=== PATIENT | female | born 1960 | race Caucasian/White ===

== ENCOUNTER 2025-06-14 08:07 | Inpatient (IN) | payer OTHER, SELFPAY ==
[2025-06-14] VITALS (13 sets, daily range): BP systolic 129–154; BP diastolic 72–96; PULSE 65–81; RESP 12–20; TEMP 36.2–36.8; O2SAT 97–100; BMI 31.1; BMI 32.1
--- NOTE | 2025-06-14 08:30 | EDS_ITS ---
HPI History of Present Illness Chief Complaint: Abn Labs Informant: patient Onset/Context/Timing Onset: Weeks Context: Gradual Onset Timing: Continuous Current Severity: Mild Maximum Severity: Mild Narrative Narrative: 64-year-old female no significant past medical history. States that she had labs drawn about 1-1/2 weeks ago around June 02 was called said her hemoglobin was 6.2 and was referred to the ER. Said people been telling her she has been pale. Says she just felt generally weak. She denies any melena. No history of anemia or kidney disease. No prior transfusion. She denies any black or bloody stool. Prior similar symptoms: No Recent Illness/Hospitalization: No PFSH PFSH Medical History no medical history no medical history Home Medications ?Medication ?Instructions ?Recorded ?Last Taken ?Type cephalexin 500 mg capsule (Keflex) 500 mg PO 4X/DAY ## 20 05/22/17 Unknown Rx sulfamethoxazole 800 1 tab PO BID ##10 05/22/17 U nknown Rx mg-trimethoprim 160 mg tablet Allergy/AdvReac Type Severity Reaction Status Date / Time No Known Allergies Allergy Verified 05/22/17 10:09 Social History Smoking Status: Never smoker ROS ROS ED ROS Narrative Generalized weakness. Constitutional Constitutional ED: Denies chills or fever(s) Eyes Eyes: Denies blurry vision ENT ENT ED: Denies ear pain Cardiovascular Cardiovascular: Denies chest pain Respiratory/Chest Respiratory/Chest: Denies cough Gastrointestinal Gastrointestinal: Denies abdominal pain Genitourinary Genitourinary ED: Denies dysuria or hematuria Musculoskeletal Musculoskeletal: Denies arthralgias Integumentary Denies abscess Neurologic Neurologic: Denies headache(s) Psychiatric Psychiatric: Denies anxiety Endocrine Endocrinology: Denies cold intolerance Hematologic/Lymphatic Hematologic/Lymphatic: Reports none Allergic/Immunologic Allergic/Immunologic ED: Denies mouth swelling, tongue swelling or urticaria EXAM Physical Exam Narrative Exam Narrative: Well-appearing 64-year-old female. Vital signs are stable afebrile. Pulse ox 100% on room air no hypoxia. She is in no distress. She is accompanied by her verbally. H EENT exam pupils are round reactive light. Moist mutes members. Neck nontender no JVD. No lymphadenopathy. Lungs clear to auscultation bilaterally. Heart regular rhythm no murmur. Chest wall and ribs are nontender. Abdomen soft nontender. Patient is moving all 4 extremities. Nontender no edema. Skin she appears pale. Neurologically she is awake alert. Answer questions following commands. Back nontender. Const Vital Signs: 06/14/25 08:08 06/14/25 08:36 Temperature 97.2 F L Temperature Source Temporal Pulse Rate 77 Respiratory Rate 16 Respiratory Effort Normal Non-Labored Respiratory Pattern Normal Blood Pressure 154/81 H Blood Pressure Mean 105 Pulse Ox 100 Oxygen Delivery Method Room Air Positive well nourished and well developed; Negative for cachectic, contractures or unkempt General Appearance ED: well developed, NAD and pallor; Negative for unkempt, cachectic, contractures, cyanotic or diaphoretic Nutritional Appearance: Negative for cachectic HEENT Reports moist mucous membranes Eyes PERRL and EOMs intact bilaterally Neck no lymphadenopathy, supple and no JVD Chest Wall inspection of chest normal and palpation of chest normal Resp normal respiratory effort and clear to auscultation bilaterally Cardio regular rate, regular rhythm, S1 normal heart sound, S2 normal heart sound and no murmurs GI normal to inspection, nondistended, normoactive bowel sounds, non-tender, non- distended and no masses Auscultation: normoactive bowel sounds Palpation: soft; Negative for tender, guarding, mass or rebound tenderness present Back/Spine no CVA tenderness General Back: Negative for CVA tenderness Cervical Spine: Negative for cervical spine tenderness Thoracic Spine / Upper Back: Negative for thoracic spinal tenderness or paraspi nal muscle tenderness Lumbar Spine / Lower Back: Negative for lumbar spinal tenderness Extremity normal to inspection General Extremety ED: Negative for edema or tenderness General Extremity: Negative for edema Neuro oriented x3 and CN's II-XII intact bilaterally Sensorium / Orientation: alert Motor Exam: strength 5/5 throughout Psych mental status grossly normal Appearance: Negative for unkempt Skin no rashes or lesions noted, no wounds and skin turgor normal General Skin Exam: elasticity normal and pallor; Negative for jaundice Lesions: No lesion noted Rashes: No rashes noted Trauma: Negative for abrasion Wounds: Negative for wounds noted MDM MDM MDM Narrative Medical decision making narrative: 64-year-old female outpatient labs showed hemoglobin 6.2 she was sent to the emergency department for further evaluation and possible transfusion. Repeat exam 9:29 AM unchanged. Patient doing well. We discussed her test results. She is being typed and crossed currently for 2 units I called the blood bank they will start transfusing them when ready. I have the hospitalist on page for admission. For further evaluation of her anemia. Patient has not noticed any black or bloody stools. History & Record Review Discussion w/independent historian: Patient and Family Additional record(s) reviewed:: Prior inpatient record, Prior outpatient record, Prior ED visit and Prior labs Lab Data Attestation: I reviewed the patient's lab results. Lab results narrative: CBC shows a white count of 5. H&H is 6.6 and 24.8. Platelets 282. Electrolytes show a gap of 12. Normal BUN of 14 creatinine 0.79. Glucose 96. Blood type a positive. Labs: Laboratory Results - last 24 hr 06/14/25 08:20 WBC 5.0 RBC 3.48 L Hgb 6.6 L Hct 24.8 L MCV 71.3 L MCH 19.0 L MCHC 26.6 L RDW Std Deviation 49.1 H RDW Coeff of Evelia 19.1 H Plt Count 282 MPV 10.3 Immature Gran % (Auto) 0.200 Neut % (Auto) 54.9 Lymph % (Auto) 28.3 Cobb % (Auto) 11.4 H Eos % (Auto) 3.6 Baso % (Auto) 1.6 H Absolute Neuts (auto) 2.7 Absolute Lymphs (auto) 1.41 Nucleated RBC % 0 Sodium 144 Potassium 4.1 Chloride 109 H Carbon Dioxide 22.9 Anion Gap 12 BUN 14 Creatinine 0.79 Estim Creat Clear Calc 75.48 Est GFR (MDRD) Non-Af 83 BUN/Creatinine Ratio 17.4 Glucose 96 Calcium 9.2 Blood Type A POSITIVE Antibody Screen NEGATIVE Crossmatch See Detail Discharge Plan Triage Chief Complaint: Abn Labs ED Provider: Lenny Herrera Dx/Rx/DC Orders Clinical Impression: Anemia requiring transfusions Prescriptions: No Action sulfamethoxazole-trimethoprim 1 TABLET tablet 1 tab PO BID Qty: 10 0RF cephalexin [Keflex] 500 MG capsule 500 mg PO 4X/DAY Qty: 20 0RF Primary Care Provider: Nolvia Bowman NP Referrals: Ata Martinez DO [Non-Staff] - Print Language: Romanian Disposition Disposition: Acute Care Hospital [facility]
[2025-06-14 08:45] LABS: Hematocrit 24.8 % (37-47); Hemoglobin 6.6 g/dL (12.0-15.0); Immature Granulocytes Count 0.010 X10^3/uL (0.0-0.0); Mean Corp Hgb Conc 26.6 g/dL (32-36); Mean Corpuscular Volume 71.3 fL (81-99); Mean Platelet Vol. 10.3 fl (6.2-12.0); NRBC Flagged by Analyzer 0 % (0-5); Platelet Count 282 K/mm3 (150-450); RBC Distribution Width CV 19.1 % (11.6-14.6); RBC Distribution Width SD 49.1 fl (35.1-43.9); Red Blood Count 3.48 M/mm3 (4.2-5.4); White Blood Count 5.0 K/mm3 (4.4-11.0)
[2025-06-14 09:08] LABS: Anion Gap 12 (5-15); BUN 14 mg/dL (4-19); BUN/Creat Ratio 17.4 RATIO (10-20); Calcium,Total 9.2 mg/dL (7.6-11.0); Carbon Dioxide 22.9 mmol/L (21.0-32.0); Chloride 109 mmol/L (98-108); Estimated Creatinine Clearance 75.48 ml/min (50-250); Glucose 96 mg/dL (70-99); Potassium 4.1 mmol/L (3.3-5.1)
--- NOTE | 2025-06-14 10:05 | PCM.HP.STD ---
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 In ED, H&H found 6.6 24.8%. Microcytic, platelet count 282K. She denies any associated symptom of chest pain pressure tightness, dizziness lightheadedness although she feels dyspnea on exertion when climbing 1 flight of stairs. Denies GI bleed including hematemesis melena or hematochezia. Did not had colonoscopy or EGD in the past. Denies first-degree family history of colon patient cancer. No nausea or vomiting. Patient not on any blood thinner or antiplatelet agent Or NSAID 2 L of PRBC type and crossmatch ordered by ER physician and further admitted [facility] Medical History no medical history Home Medications ?Medication ?Instructions ?Recorded ?Last Taken ?Type NK 06/14/25 Unknown History Allergy/AdvReac Type Severity Reaction Status Date / Time No Known Allergies Allergy Verified 05/22/17 10:09 Social History Smoking Status: Never smoker ROS ROS Narrative Constitutional: Denies chronic fatigue and weakness. No fever. HEENT: Reports systems reviewed and no addt'l complaints, except as documented Respiratory/Chest: Recent dyspnea on exertion when climbing stairs. No acute shortness of breath or respiratory distress or wheezing. No smoking. No chronic lung disease CVS: No chest pain. Denies any chronic cardiac disease Gastrointestinal: Denies coffee ground emesis, hematemesis or vomiting Genitourinary: Denies burning urination or new urinary tract symptoms Musculoskeletal: Denies acute joint pain or limited range of motion. No acute injury Neurologic: Denies seizure-like symptoms. skin: No ulcer. No rash Endocrinology: Reports systems reviewed and no addt'l complaints, except as documented Hematologic/Lymphatic: Reports systems reviewed and no addt'l complaints, except as documented Rest 14 ROS are negative except as mentioned in HPI Vital Signs Vital Signs Vital Signs: 06/14/25 08:08 06/14/25 08:36 Temperature 97.2 F L Temperature Source Temporal Pulse Rate 77 Respiratory Rate 16 Respiratory Effort Normal Non-Labored Respiratory Pattern Normal Blood Pressure 154/81 H Blood Pressure Mean 105 Pulse Ox 100 Oxygen Delivery Method Room Air Weight Weight: 187 lb 6.4 oz Body Mass Index (BMI) 31.1 Physical Exam Narrative General: Alert, Oriented x3, Cooperative, . Pale looking HEENT: Atraumatic, PERRLA, EOMI, Normocephalic. Oral: No Gingival or Mucosal Lesions/ Ulcerations Neck: Supple, No JVD, Negative Carotid Bruits Chest wall/Lungs: Air entry diminished in bilateral lung bases. No crepitation/rhonchi Cardiovascular: Regular rate and rhythm, Normal S1,S2, No M/G/R Abdomen: Bowel Sounds Present, Soft, Non Tender, Non-Distended : No dysuria. No renal angle tenderness. No suprapubic tenderness. Extremities: No edema, Capillary Refill Less than 3 Seconds Skin: No rashes, No breakdown Musculoskeletal: No Tenderness to Palpation of Joints or Extremities Neurological: Cranial nerves II-XII grossly intact, DTR 2+/4. No acute focal neurological deficit. Psych/Mental Status: Normal Affect, Appropriate. Results Lab / Micro Data 06/14/25 08:20 06/14/25 08:20 Labs: Laboratory Results - last 24 hr 06/14/25 08:20: WBC 5.0, RBC 3.48 L, Hgb 6.6 L, Hct 24.8 L, MCV 71.3 L, MCH 19.0 L, MCHC 26.6 L, RDW Std Deviation 49.1 H, RDW Coeff of Evelia 19.1 H, Plt Count 282, MPV 10.3, Immature Gran % (Auto) 0.200, Neut % (Auto) 54.9, Lymph % (Auto) 28.3, [place] % (Auto) 11.4 H, Eos % (Auto) 3.6, Baso % (Auto) 1.6 H, Absolute Neuts (auto) 2.7, Absolute Lymphs (auto) 1.41, Nucleated RBC % 0, Sodium 144, Potassium 4.1, Chloride 109 H, Carbon Dioxide 22.9, Anion Gap 12, BUN 14, Creatinine 0.79, Estim Creat Clear Calc 75.48, Est GFR (MDRD) Non-Af 83, BUN/Creatinine Ratio 17.4, Glucose 96, Calcium 9.2, Blood Type A POSITIVE, Antibody Screen NEGATIVE, Crossmatch See Detail Assessment & Plan Assessment/Plan (1) Anemia requiring transfusions: PLAN: Plan 64-year-old female being admitted for severe anemia from outside lab by PCP 1. Acute rapidly acute on chronic severe microcytic anemia: No previous lab to compare. Patient is being admitted in PCU. H&H 6.6/24.8%. Platelet count normal. Units of PRBC-type and crossmatch and transfusion. Posttransfusion H&H. Stool for occult blood ordered. GI consulted for severe microcytic anemia to rule out colon cancer. PPI ordered. 2. Severe anemia: Exact etiology unclear. Anemia workup including reticulocyte panel, iron profile, B12 and folic acid ordered. MCV low, MCH low RDW elevated therefore most likely iron deficiency anemia. 3. The patient denies any other chronic comorbidities including hypertension and diabetes mellitus or other comorbidities. Patient not on any home medication. DVT prophylaxis, moderate risk: Pharmacological prophylaxis contraindicated. Bilateral SCDs Living will/advanced directive/end of life care: Patient does not have living will or advanced directive. After discussion of benefits/risks procedures involved with full code, DNR CC arrest and DNR CC, the patient states he has not decided yet but opted for full code for now. Patient does want artificial life support including intubation, tube feed, ventilator and/chest compression, central venous catheter, vasopressor and DC shock if needed Total time spent in [id number] encounter in discussion of advanced directive 17 minutes. She states her is power of assistant prosecuting attorney for health. Laboratory Results 06/14/25 08:20: WBC 5.0, RBC 3.48 L, Hgb 6.6 L, Hct 24.8 L, MCV 71.3 L, MCH 19.0 L, MCHC 26.6 L, RDW Std Deviation 49.1 H, RDW Coeff of Evelia 19.1 H, Plt Count 282, MPV 10.3, Immature Gran % (Auto) 0.200, Neut % (Auto) 54.9, Lymph % (Auto) 28.3, [place] % (Auto) 11.4 H, Eos % (Auto) 3.6, Baso % (Auto) 1.6 H, Absolute Neuts (auto) 2.7, Absolute Lymphs (auto) 1.41, Nucleated RBC % 0, Sodium 144, Potassium 4.1, Chloride 109 H, Carbon Dioxide 22.9, Anion Gap 12, BUN 14, Creatinine 0.79, Estim Creat Clear Calc 75.48, Est GFR (MDRD) Non-Af 83, BUN/Creatinine Ratio 17.4, Glucose 96, Calcium 9.2, Magnesium 2.1, Blood Type A POSITIVE, Antibody Screen NEGATIVE, Crossmatch See Detail 06/14/25 11:55: PT 12.7, INR 0.9 Charges/Coding Visit Charges Inpatient E&M: 52325 Init Hosp L3 Procedures Hospitalists Procedures: 28282 Advncd Care Plan 30 Min
[2025-06-14 11:33] LABS: Magnesium 2.1 mg/dL (1.5-2.2)
[2025-06-14 12:43] LABS: Prothrombin Time (Protime)PT. 12.7 SECONDS (11.7-14.9)
[2025-06-14 14:35] LABS: Immature Reticulocyte Fraction 23.50 % (3.00-15.90); Platelet Count 287 K/mm3 (150-450); Reticulocyte Count 1.94 % (0.5-1.5)
[2025-06-14 15:23] LABS: Ferritin 6 ng/mL (22-378); Iron 14 ug/dL (50-170); Iron Binding Capacity,Unsat 449 ug/dL (228-428); Vitamin B12 172 pg/mL (180-914)
[2025-06-14 15:24] LABS: FOLATES,SERUM (FOLIC ACID) 15.40 ng/mL (4.60-34.80)
[2025-06-14 16:33] LABS: Iron Binding Capacity,Total 463 ug/dL (250-450)
[2025-06-14 18:25] LABS: Hematocrit 35.9 % (37-47); Hemoglobin 10.1 g/dL (12.0-15.0)
--- NOTE | 2025-06-14 18:42 | DS.PCM_ITS ---
Providers Date of Admission: 06/14/25 Date of Discharge: 06/14/25 Primary Care Physician: Nolvia Bowman, FERNANDO-C Consultations 06/14/25 11:31 Consult: Gastroenterology Routine Consulting Provider: [facility] Reason for Consult: SEVERE TANVIR EMERGENT Consult: No MD Notified: Yes Date Notified: 06/14/25 Time Notified: 10:05 Method of Notification: Text Reason For Visit: ANEMA/BLOOD TRANSFUSION Diagnosis Discharge Diagnosis (1) Anemia requiring transfusions: Status: Acute Code(s): D64.9 - Anemia, unspecified Plan 64-year-old female being admitted for severe anemia from outside lab by PCP 1. Acute rapidly acute on chronic severe microcytic anemia: No previous lab to compare. Patient is being admitted in PCU. H&H 6.6/24.8%. Platelet count normal. Units of PRBC-type and crossmatch and transfusion. Posttransfusion H&H. Stool for occult blood ordered. GI consulted for severe microcytic anemia to rule out colon cancer. PPI ordered. Up to 3 minutes of PRBC transfusion, hemoglobin went up to 10.1. Patient was advised she will need colonoscopy. She did not agree with colonoscopy or suggestions. She signed AMA/left AGAINST MEDICAL ADVICE. 2. Severe anemia: Exact etiology unclear. Anemia workup including reticulocyte panel, iron profile, B12 and folic acid ordered. MCV low, MCH low RDW elevated therefore most likely iron deficiency anemia. 3. The patient denies any other chronic comorbidities including hypertension and diabetes mellitus or other comorbidities. Patient not on any home medication. DVT prophylaxis, moderate risk: Pharmacological prophylaxis contraindicated. Bilateral SCDs Living will/advanced directive/end of life care: Patient does not have living will or advanced directive. After discussion of benefits/risks procedures involved with full code, DNR CC arrest and DNR CC, the patient states he has not decided yet but opted for full code for now. Patient does want artificial life support including intubation, tube feed, ventilator and/chest compression, central venous catheter, vasopressor and DC shock if needed Total time spent in [id number] encounter in discussion of advanced directive 17 minutes. She states her is power of privacy attorney for health. Laboratory Results 06/14/25 08:20: WBC 5.0, RBC 3.48 L, Hgb 6.6 L, Hct 24.8 L, MCV 71.3 L, MCH 19.0 L, MCHC 26.6 L, RDW Std Deviation 49.1 H, RDW Coeff of Evelia 19.1 H, Plt Count 282, MPV 10.3, Immature Gran % (Auto) 0.200, Neut % (Auto) 54.9, Lymph % (Auto) 28.3, Guthrie % (Auto) 11.4 H, Eos % (Auto) 3.6, Baso % (Auto) 1.6 H, Absolute Neuts (auto) 2.7, Absolute Lymphs (auto) 1.41, Nucleated RBC % 0, Sodium 144, Potassium 4.1, Chloride 109 H, Carbon Dioxide 22.9, Anion Gap 12, BUN 14, Creatinine 0.79, Estim Creat Clear Calc 75.48, Est GFR (MDRD) Non-Af 83, BUN/Creatinine Ratio 17.4, Glucose 96, Calcium 9.2, Magnesium 2.1, Blood Type A POSITIVE, Antibody Screen NEGATIVE, Crossmatch See Detail 06/14/25 11:55: PT 12.7, INR 0.9 Medications at Discharge Home Medications NK 06/14/25 Hospital Course Summary of Care Provided Hospital Course: Laboratory Results 06/14/25 08:20: Crossmatch See Detail 06/14/25 18:18: Hgb 10.1 L, Hct 35.9 L Physical Exam Narrative Patient left AMA on the same day of admission. Please see physical exam on the H&P. Weight / BMI Weight Weight: 188 lb 8 oz Body Mass Index (BMI) 32.1 ABG / Lab / Microbiology Data 06/14/25 18:18 06/14/25 08:20 Laboratory: Laboratory Results - last 24 hr 06/14/25 08:20: Crossmatch See Detail 06/14/25 18:18: Hgb 10.1 L, Hct 35.9 L D/C Instructions DC O2, CPAP, BIPAP Needs Home O2 Discharge instructions: No Meaningful Use Info Meaningful Use Meaningful Use Diagnoses (Choose all that apply): None applicable Discharge Plan Admission Admit Date/Time: 06/14/25 10:00 Attending Provider: Dante Hannah Primary Care Provider: Nolvia Bowman NP Consulting Providers: Dante Hannah; Saturnino Back; Lynn Velasquez; Adriane Dial; Magaly Bundy Discharge Orders/Prescriptions Prescriptions: No Action NK Referrals / Follow Up: Ata Martinez, [Non-Staff] - Nolvia Bowman SERVICE ELECTRICIAN, SERVICE ELECTRICIAN-C [Primary Care Provider] - Disposition Disposition (needs filled in before D/C Order can be placed): Home, Self Care Charges/Coding Visit Charges Inpatient E&M: 98238 Disch Hosp
== END 2025-06-14 18:34 | disposition left against medical advice (07) | DRG 812 ==
LOC: ED 09:39 → PCU 10:35
PROVIDERS: Admitting Provider Internal Medicine; Emergency Provider Emergency Medicine; PCP Nurse Practitioner Family; Visit Provider Internal Medicine
DX: D50.9 Iron deficiency anemia, unspecified (principal); Z53.29 Procedure and treatment not carried out because of patient's decision for other reasons
CPT/HCPCS: 80048; 82607; 82728; 82746; 83540; 83550; 83735; 85014; 85018; 85025; 85045; 85610; 86850; 86900; 86901; 86920; 99284; P9016; A4216

== ENCOUNTER 2025-08-01 07:55 | Day surgery (SDC) | payer SELFPAY, OTHER ==
[2025-08-01] VITALS (8 sets, daily range): BP systolic 100–136; BP diastolic 55–86; PULSE 64–82; RESP 16–18; TEMP 36.1–36.4; O2SAT 97–100; BMI 31.8
[2025-08-01] MEDS: Lactated Ringers 1,000 ML 15 ML IV (08:31)
--- NOTE | 2025-08-01 08:55 | PCM.HP.BLA ---
History and Physical Date of Admission: 08/01/25 Intake Vital Signs 06/14/2511:49 07/10/2508:34 Height 5 ft 4 in 5 ft 4 in Weight: 187 lb 6 oz BMI 32.1 BP 145/97 H Blood Pressure Location Lt radial Position Sitting Respiration 17 Pulse 66 Pulse Source Monitor Temp 97.2 F L Temp Source Temporal Pulse Oximetry (%) 98 Oxygen Delivery Method room air Intake Visit Reasons: Anemia Chief Complaint: anemia Is patient in pain?: No Allergies No Known Allergies Allergy (Verified 07/10/25 08:36) Medications Medication Instructions Recorded Confirmed Type ferrous sulfate 325 mg (65 mg 325 mg PO QDAY 07/10/25 07/10/25 History iron) tablet Have you fallen in the past year?: No PFSH Medical History (Updated 07/10/25 @ 08:34 by Lien Reich LPN) Iron deficiency anemia Anemia requiring transfusions Social History (Updated 07/10/25 @ 08:34 by Lien Reich LPN) Smoking Status: Never smoker alcohol intake: never substance use type: does not use HPI HPI HPI: Patient is a 64-year-old female here with anemia. Patient does not note any gross blood per stool. She denies abdominal pain. She saw her doctor in early June and was found to have a hemoglobin of 6 and had 2 units of blood. She feels much better now. She has never had a colonoscopy or EGD. ROS General General: Yes fatigue; No weight change, appetite, colon cancer, breast cancer or weakness HEENT HEENT: No difficulty swallowing, eye injury, eye surgery, swollen glands or hoarseness Endo Endocrine: No thyroid disease, diabetes mellitus, thyroid cancer, Hair loss, heat intolerance or cold intolerance Skin Skin: No rash or changing moles Musc Musculoskeletal: No back problems, arthritis, rheumatoid arthritis, gout or joint pain Cardio Cardiovascular: No murmur, pacemaker, heart disease, atrial fibrillation, high blood pressure, heart attack, heart stent, palpitations, shortness of breath with exertion or chest pain Psych Psychiatric: No depression, anxiety or hearing voices Resp Respiratory: Yes shortness of breath, No sleep apnea, No cough, No COPD, No asthma, No emphysema and No wheezing Gastro Gastrointestinal: No abdominal pain, No nausea or vomiting, No diarrhea, No constipation, No blood in stool, No acid reflux, No hemorrhoids, No ulcers, No gallbladder problem and No black,tarry stools Ti Hematologic: No blood thinners, No blood disorders, No bleeding, No anemia and No blood clots Neuro Neurologic: No numbness, No tingling and No weakness Exam Const General: cooperative Orientation: alert and oriented x3 HENMT Head: normal to inspection Neck Neck: normal visual inspection and full ROM Chest Chest palpation & inspection: normal inspection of the chest Resp Effort & Inspection: normal respiratory effort Auscultation: clear to auscultation bilaterally Cardio Rate: regular rate Rhythm: regular rhythm GI Inspection: non-distended Palpation: soft and nontender Skin General: no rashes or lesions noted Neuro General: patient alert and patient oriented x3 Extrem General: full ROM Psych Appearance: grossly normal Mental Status: mental status grossly normal Assessment and Plan Assessment and Plan (1) Anemia: Qualifiers: Anemia type: iron deficiency Iron deficiency anemia type: unspecified iron deficiency Qualified Code(s): D50.9 - Iron deficiency anemia, unspecified Plan: Patient has iron deficiency anemia. I recommended upper and lower scope to evaluate the GI tract. I explained endoscopy in detail to the patient. I explained the risks including but not limited to stroke or heart attack with anesthesia, perforation of the GI tract, bleeding, infection. I explained that any of these could necessitate further emergency surgery. The patient understands and all questions were answered sufficiently. The patient wishes to proceed with procedure. Jayro Wilson MD Pager: [facility] [address] [place] [address], [address] [place] [address] Office: I have examined the patient and the H&P has been reviewed. There are no clinical changes since date of exam.
--- NOTE | 2025-08-01 09:06 | PCM.PRE.AN2 ---
ASA Classification* ASA Classification ASA Classification: 2 Assessment & Plan Anesthesia* Anesthesia Assessment Anesthesia Assessment: Discussed sedation and/or anesthesia options, risks, benefits, and alternatives with patient/parents/legal guardian/POA. Questions invited. The patient/parents/legal guardian/POA seems to understand and agrees to proceed with anesthesia plan. Reviewed the physical assessment, medical history, allergy history and patient home medications list prior to surgery/procedure/anesthetic and documented any changes. Performed airway and anesthesia risk assessments. Anesthesia Type Anesthesia Type: MAC History Source History Obtained from:: Patient and Chart Anesthesia Focused Assessment* Temperature: 97.3 F Pulse Rate: 69 Blood Pressure: 136/69 Respiratory Rate: 16 Pulse Ox: 100 Oxygen Delivery Method: Room Air Airway Assessment Mouth opens: >3 cm Mallampati Score: II Teeth Condition: Intact Neck Range of motion (ROM): Limited ROM Labs Anesthesia Preop lab: CBC WBC, (4.4-11.0) 8.3 K/mm3 06/20/25, 14:10 RBC, (4.2-5.4) 4.13 M/mm3 L 06/20/25, 14:10 Hgb, (12.0-15.0) 9.1 g/dL L 06/20/25, 14:10 Hct, (37-47) 32.0 % L 06/20/25, 14:10 Plt Count, (150-450) 268 K/mm3 06/20/25, 14:10 CHEMISTRY Potassium, (3.3-5.1) 4.2 mmol/L 06/20/25, 14:10 Sodium, (133-145) 140 mmol/L 06/20/25, 14:10 Magnesium, (1.5-2.2) 2.1 mg/dL 06/14/25, 08:20 BUN, (4-19) 12 mg/dL 06/20/25, 14:10 Creatinine, (0.70-1.20) 0.90 mg/dL 06/20/25, 14:10 Glucose, (70-99) 96 mg/dL 06/20/25, 14:10 TSH, (0.300-4.200) 1.380 uIU/mL 06/02/25, 10:40 COAG PT, (11.7-14.9) 12.7 SECONDS 06/14/25, 11:55 Pre-Assessment Diagnosis/Proposed Procedure Planned Operative Procedure(s): COLONOSCOPY,EGD Anesthesia History 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 When Was Last Pacemaker Check QUESTION #4 FULL TEXT: You/Your Family Experience fever (hyperthermia) with Anesthesia Last Oral Intake Last Oral intake: Last Oral Intake NPO since 20:00 08/01/25 08:18 Meds taken in AM with sips of No 08/01/25 08:18 water? 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 Female Yes 07/31/25 08:41 HX of Motion Sickness No 07/31/25 08:41 HX of N/V After Surgery No 07/31/25 08:41 Non-Smoker Yes 07/31/25 08:41 Duration of Surgery greater No 07/31/25 08:41 than 60 minutes Number of Risk Factors 2 07/31/25 08:41 PONV Score Moderate Risk 07/31/25 08:41 Height & Weight Height & Weight: Anesthesia: Height & Weight Height 5 ft 4 in 08/01/25 08:18 Weight: 84.1 kg 08/01/25 08:18 Body Mass Index (BMI) 31.8 08/01/25 08:18 Respiratory Assessment Respiratory Assessment - riverboat captain: Respiratory Tract Infection Hx - riverboat captain Hx Respiratory Tract Infection No 07/31/25 08:41 STOP Sleep Apnea STOP Sleep Apnea - riverboat captain: STOP Sleep Apnea - 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 Has anyone observed you stop No 07/31/25 08:41 breathing during sleep? STOP Results Negative 07/31/25 08:41 QUESTION #5 FULL TEXT : Do you snore loudly (louder than talking or can be heard through closed doors)? 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 Specify any problems Hx of Preganancy in last 3 No 07/31/25 08:41 Months Nurse Filling Out Transfusion VCHRISTIN 07/31/25 08:41 & Questions: Date: 07/31/25 07/31/25 08:41 Time: 08:42 07/31/25 08:41 Patient unable to answer at this time (ie. confused, unrespo /Reproduction History /Reproductive History - riverboat captain: /Reproductive Hx- riverboat captain Hx Now No 07/31/25 08:41 Gestational Age (in weeks): EDC: Hx Hx Para Hx Section SAB No 07/31/25 08:41 Active Medications Active Medications: Current Medications Generic Name Dose Route Start Last Admin Trade Name Freq PRN Reason Stop Dose Admin Lactated Ringer's 1,000 mls @ 15 mls/hr 08/01/25 08:15 08/01/25 08:31 IV 15 mls/hr .Q48H MARYCRUZ Administration PFSH Medical History Wears glasses Post-menopausal Anemia Gastric reflux Shortness of breath on exertion Chronic cough Iron deficiency anemia Anemia requiring transfusions Home Medications Medication Instructions Recorded Last Taken Type ferrous sulfate 325 mg (65 mg 325 mg PO QDAY 07/10/25 07/30/25 History iron) tablet Allergy/AdvReac Type Severity Reaction Status Date / Time No Known Allergies Allergy Verified 08/01/25 08:16 Surgical History Hx of dilation and curettage Social History Smoking Status: Never smoker alcohol intake: never substance use type: does not use Review of Systems (Anesthesia) ROS Narrative System reviewed and no additional complaints, except as documented.
--- NOTE | 2025-08-01 09:30 | OP.PROVAT_ITS ---
08/01/2025 Nolvia Bowman Cotton Inspector, Cotton Inspector-c Re : Upper GI endoscopy procedure for Muna Irby Dear Gracie This procedure was performed on Friday, August 01, 2025. My impressions and recommendations are as follows: Impressions : - Normal esophagus. - Normal stomach. - Normal examined duodenum. - No specimens collected. Recommendations : - Discharge patient to home. - Resume previous diet. - Continue present medications. My findings are described in the full procedure note, which is enclosed. If I can be of further assistance, please feel free to contact me at Doctor phone number(s): , Work: . Sincerely, Jayro Wilson MD 08/01/2025 9:29:19 AM This report has been signed electronically.
--- NOTE | 2025-08-01 09:30 | OP.EGD_ITS ---
Patient Name: Muna Irby Procedure Date: 08/01/2025 9:03 AM Date of : 1960 Age: 64 Procedure: Upper GI endoscopy Indications: Iron deficiency anemia Providers: Jayro Wilson MD Medicines: Propofol per Anesthesia Patient Profile: This is a 64 year old female. Refer to note in patient chart for documentation of history and physical. Complications: No immediate complications. Procedure: Pre-Anesthesia Assessment: - Prior to the procedure, a History and Physical was performed, and patient medications and allergies were reviewed. The patient's tolerance of previous anesthesia was also reviewed. The risks and benefits of the procedure and the sedation options and risks were discussed with the patient. All questions were answered, and informed consent was obtained. Prior Anticoagulants: The patient has taken no anticoagulant or antiplatelet agents. After reviewing the risks and benefits, the patient was deemed in satisfactory condition to undergo the procedure. After obtaining informed consent, the endoscope was passed under direct vision. Throughout the procedure, the patient's blood pressure, pulse, and oxygen saturations were monitored continuously. The Colonoscope was introduced through the mouth, and advanced to the third part of duodenum. The upper GI endoscopy was accomplished without difficulty. The patient tolerated the procedure well. Scope In: 9:13:07 AM Scope Out: 9:15:32 AM Total Procedure Duration Time 0 hours 2 minutes 25 seconds Findings: The esophagus was normal. The stomach was normal. The examined duodenum was normal. Impression: - Normal esophagus. - Normal stomach. - Normal examined duodenum. - No specimens collected. Recommendation: - Discharge patient to home. - Resume previous diet. - Continue present medications. Procedure Code(s): --- Professional --- 24718, Esophagogastroduodenoscopy, flexible, transoral; diagnostic, including collection of specimen(s) by brushing or washing, when performed (separate procedure) Diagnosis Code(s): --- Professional --- D50.9, Iron deficiency anemia, unspecified CPT copyright 2021 [employer]. All rights reserved. The codes documented in this report are preliminary and upon floor covering contractor review may be revised to meet current compliance requirements. Jayro Wilson MD 08/01/2025 9:29:19 AM This report has been signed electronically. Number of Addenda: 0 Note Initiated On: 08/01/2025 9:03 AM
--- NOTE | 2025-08-01 09:31 | OP.PROVAT_ITS ---
08/01/2025 Nolvia Bowman Manager Administration, Manager Administration-c Re : Colonoscopy procedure for Muna Irby Dear Gracie This procedure was performed on Friday, August 01, 2025. My impressions and recommendations are as follows: Impressions : - The entire examined colon is normal on direct and retroflexion views. - No specimens collected. Recommendations : - Discharge patient to home. - Resume previous diet. - Continue present medications. - Repeat colonoscopy in 10 years for screening purposes. My findings are described in the full procedure note, which is enclosed. If I can be of further assistance, please feel free to contact me at Doctor phone number(s): , Work: . Sincerely, Jayro Wilson MD 08/01/2025 9:31:06 AM This report has been signed electronically.
--- NOTE | 2025-08-01 09:31 | OP.COLON_ITS ---
Patient Name: Muna Irby Procedure Date: 08/01/2025 9:16 AM Date of : 1960 Age: 64 Procedure: Colonoscopy Indications: Iron deficiency anemia Providers: Jayro Wilson MD Medicines: Propofol per Anesthesia Patient Profile: This is a 64 year old female. Refer to note in patient chart for documentation of history and physical. Last Colonoscopy: none. The patient's first colonoscopy is today. Complications: No immediate complications. Estimated blood loss: Minimal. Procedure: Pre-Anesthesia Assessment: - Prior to the procedure, a History and Physical was performed, and patient medications and allergies were reviewed. The patient's tolerance of previous anesthesia was also reviewed. The risks and benefits of the procedure and the sedation options and risks were discussed with the patient. All questions were answered, and informed consent was obtained. Prior Anticoagulants: The patient has taken no anticoagulant or antiplatelet agents. After reviewing the risks and benefits, the patient was deemed in satisfactory condition to undergo the procedure. - Prior to the procedure, a History and Physical was performed, and patient medications and allergies were reviewed. The patient's tolerance of previous anesthesia was also reviewed. The risks and benefits of the procedure and the sedation options and risks were discussed with the patient. All questions were answered, and informed consent was obtained. Prior Anticoagulants: The patient has taken no anticoagulant or antiplatelet agents. After reviewing the risks and benefits, the patient was deemed in satisfactory condition to undergo the procedure. After I obtained informed consent, the scope was passed under direct vision. Throughout the procedure, the patient's blood pressure, pulse, and oxygen saturations were monitored continuously. The Colonoscope was introduced through the anus and advanced to the cecum, identified by appendiceal orifice and ileocecal valve. The colonoscopy was performed without difficulty. The patient tolerated the procedure well. The quality of the bowel preparation was good. The ileocecal valve, appendiceal orifice, and rectum were photographed. Scope In: 9:16:44 AM Scope Withdrawal Time 0 hours 3 minutes 0 seconds Scope Out: 9:25:59 AM Total Procedure Duration Time 0 hours 9 minutes 15 seconds Findings: The entire examined colon appeared normal on direct and retroflexion views. Impression: - The entire examined colon is normal on direct and retroflexion views. - No specimens collected. Recommendation: - Discharge patient to home. - Resume previous diet. - Continue present medications. - Repeat colonoscopy in 10 years for screening purposes. Procedure Code(s): --- Professional --- 44663, Colonoscopy, flexible; diagnostic, including collection of specimen(s) by brushing or washing, when performed (separate procedure) Diagnosis Code(s): --- Professional --- D50.9, Iron deficiency anemia, unspecified CPT copyright 2021 [employer]. All rights reserved. The codes documented in this report are preliminary and upon middle card tender review may be revised to meet current compliance requirements. Jayro Wilson MD 08/01/2025 9:31:06 AM This report has been signed electronically. Number of Addenda: 0 Note Initiated On: 08/01/2025 9:16 AM
--- NOTE | 2025-08-01 09:33 | PCM.POST.ANE ---
Anesthesia: Postop Eval I Current Vital Signs Temperature: 97 F Pulse Rate: 82 Blood Pressure: 100/55 Respiratory Rate: 16 Pulse Ox: 97 Oxygen Delivery Method: Room Air Assessment Airway patent: Yes Spontaneous unlabored respirations: Yes Mental status: Awake and Calm nausea: No Vomiting: No Anesthesia Complication: No Fluid Hydration Crystalloid volume administer (ml): 400 Total IV fluid infused: 400 Progress Note Anesthesia document: Postop Eval 1 completed: Yes
--- NOTE | 2025-08-01 09:38 | EKG12_ITS ---
Test Reason : ARRYTHMIA Blood Pressure : */* mmHG Vent. Rate : 67 BPM Atrial Rate : 67 BPM P-R Int : 146 ms QRS Dur : 80 ms QT Int : 420 ms P-R-T Axes : 8 42 36 degrees QTcB Int : 443 ms Sinus rhythm with marked sinus arrhythmia Otherwise normal ECG No previous ECGs available Confirmed by José Luis Araujo ([id number]), scientific editor NOLVIA MOORE ([id number]) on 08/08/2025 7:54:13 AM Referred By: Nolvia Bowman Confirmed By: José Luis Araujo
--- NOTE | 2025-08-01 10:08 | POSTOPAN2_ITS ---
Anesthesia Postop Eval I Sum Postop Eval Completion status Anesthesia document: Postop Eval 1 completed: Yes Anesthesia Postop Eval I Summary Anesthesia Postop Eval I Summary: Anesthesia Postop Eval I: Assessment Summary Airway patent Yes 08/01/25 09:34 CAR PARK ATTENDANT.GDOTT Spontaneous unlabored Yes 08/01/25 09:34 CAR PARK ATTENDANT.GDOTT respirations Mental status Awake,Calm 08/01/25 09:34 CAR PARK ATTENDANT.GDOTT nausea No 08/01/25 09:34 CAR PARK ATTENDANT.GDOTT Vomiting No 08/01/25 09:34 CAR PARK ATTENDANT.GDOTT Anesthesia Postop Eval I: Fluid Summary Crystalloid volume administer 400 08/01/25 09:34 CAR PARK ATTENDANT.GDOTT (ml) Colloids volume administered ( ml) Blood Product volume administered (ml) Total IV fluid infused 400 08/01/25 09:34 CAR PARK ATTENDANT.GDOTT Anesthesia Postop Eval I: Summary Notes Anesthesia Complication No 08/01/25 09:34 CAR PARK ATTENDANT.GDOTT Anesthesia Complication Comment: Post-operative progress note Anesthesia: Postop Eval II Evaluation Mental status: Awake and Calm Pain Level: 0 nausea: No Vomiting: No Progress Note Post-operative progress note: In PACU the patient showed some arrhythmia. Twelve-lead EKG showed sinus arrhythmia. I called the primary care physician and they stated they had not seen the patient since 2019. I made an appointment for the patient to see them tomorrow at 10:40 AM the patient is in agreement. The patient feels well and normal at baseline. No complaints of any blurred vision or lightheadedness. She feels completely fine. Complications Anesthesia Complication: No
== END 2025-08-01 10:36 | disposition home or self-care (01) ==
LOC: EN 07:57 → AC 07:58
PROVIDERS: PCP Nurse Practitioner Family; Referring Provider Nurse Practitioner Family; Visit Provider Surgery
PROC: 0DJD8ZZ Inspection of Lower Intestinal Tract, Via Natural or Artificial Opening Endoscopic (ICD-10-PCS; CPT 45378; principal; 2025-08-01 08:55)
DX: D50.9 Iron deficiency anemia, unspecified (principal)
CPT/HCPCS: 43235; 45378; 93005; J2405

== ENCOUNTER → 2025-08-23 | Outpatient (CLI) | payer OTHER, SELFPAY ==
--- OUTSIDE RECORDS SUMMARY | 2025-08-23 08:57 | XMS RPT_ITS | CCD ---
Author Organization [facility] Care Team Providers Care Velvet Steamer Name Role Phone LOTTIE KLINE (COMMUNITY HEALTH PROGRAM REPRESENTATIVE) Unavailable Unavailable Dr. Ata Martinez DO Primary Care Provider Darvin KING-CYessi Attending Provider Da Boston NP-Yessi Smith Referring Provider Dr. Lenny Pinto MD Emergency Provider [phone] Gracie KING-C, Rufina Ramon Primary Care Provider Camden BARCENAS, Dr. Howell Admit Provider Camden BARCENAS, Dr. Howell Attending Provider Camden BARCENAS, Dr. Howell Other Provider Dr. Saturnino Back DO Other Provider Lynn Brady Other Provider Adriane Freeman Other Provider Magaly Carlisle Other Provider Dr. Ata Martinez DO Primary Care Physician Darvin KING-Yessi Smith Attending Physician Dr. Lenny Lopez MD Emergency Department Physici an Gracie KING-Miguel, Rufina Ramon Primary Care Physician Camden BARCENAS, Dr. Howell Admitting Physician Camden BARCENAS, Dr. Howell Attending Physician Camden BARCENAS, Dr. Howell Nurse Practitioner Dr. Saturnino Back DO Nurse Practitioner Ron KING-Lynn Smith Nurse Practitioner Adriane Freeman Nurse Practitioner Magaly Carlisle Nurse Practitioner Gracie PLASTIC BOAT PATCHER-C, Rufina Yenny Referring Provider Steve BARCENAS, Dr. Dial Attending Physician Jayro Wilson Attending Unavailable Gracie PLASTIC BOAT PATCHER, [facility] Primary Care Unavailabl e Gracie PLASTIC BOAT PATCHER[facility] Referring Unavailabl e Darivn PLASTIC BOAT PATCHER, Yessi K Attending Unavailabl e Gracie PLASTIC BOAT PATCHER, [facility] Primary Care Unavailabl e Ata Martinez Primary Care Unavailable Darvin PLASTIC BOAT PATCHER, Yessi K Attending Unavailabl e Darvin PLASTIC BOAT PATCHER, Yessi K Referring Unavailabl e Camden, Dante Admitting Unavailable Camden, Dante Consulting Unavailable Camden, Dante Attending Unavailable Gracie PLASTIC BOAT PATCHER, [facility] Primary Care Unavailabl e Nazanin, Saturnino Consulting Unavailable Lynn Velasquez Consulting Unavailable Adriane Dial Consulting Unavailable Magaly Bundy Consulting Unavailable Gracie PLASTIC BOAT PATCHER, [facility] Primary Care Unavailabl e Steve, Jayro Attending Unavailable Gracie PLASTIC BOAT PATCHER, Rufina Yenny Referring Unavailabl e Steve, Jayro Consulting Unavailable Jayro Wilson Attending Unavailable Gracie PLASTIC BOAT PATCH[facility] Referring Unavailabl e Gracie PLASTIC BOAT PATCHER, [facility] Primary Care Unavailabl e Camden, Dante Consulting Unavailable Camden, Dante Attending Unavailable Camden, Dante Admitting Unavailable Gracie PLASTIC BOAT PATCHER, [facility] Primary Care Unavailabl e Saturnino Back Consulting Unavailable Lynn Velasquez Unavailable Adriane Dial Consulting Unavailable Magaly Bundy Consulting Unavailable Medications Current Medications Medication Drug Class(es) Dates Sig (Normalized) Sig (Original) ferrous sulfate 325 mg oral tablet (1 source) Start: 07-10-2025 take 1 tablet by mouth once daily Pablo (Nk) (2 sources) Start: 06-14-2025 Pablo (Nk) Active June 14, 2025 12:00am Completed/Discontinued Medications Medication Drug Class(es) Dates Sig (Normalized) Sig (Original) cephalexin 500 mg oral capsule (3 sources) Cephalosporin Antibacterial Start: 05-22-2017 End: 06-14-2025 take 1 capsule by mouth four times daily Cephalexin (Keflex) 500 MG capsule Discontinued 500 mg PO 4 TIMES DAILY 20 May 22, 2017 12:00am June 14, 2025 10:12am sulfamethoxazole 800 mg / trimethoprim 160 mg oral tablet (3 sources) Dihydrofolate Reductase Inhibitor Antibacterial, Sulfonamide Antimicrobial Start: 05-22-2017 End: 06-14-2025 Sulfamethoxazole- Trimethoprim 1 TABLET tablet Discontinued 1 {tbl} PO TWICE A DAY 10 May 22, 2017 12:00am June 14, 2025 10:12am Problems Problem Classification Problem Date Documented Da te Episodic/Chronic Deficiency and other anemia (6 sources) Anemia; Translations: [Anemia, unspecified] 06-14-2025 Episodic Deficiency and other anemia (1 source) Iron deficiency anemia; Translations: [Iron deficiency anemia, unspecified] 07-10-2025 Episodic Deficiency and other anemia (1 source) Iron deficiency anemia, unspecified; Translations: [Iron deficiency anemia, unspecified] Onset: 08-09-2025 Episodic Deficiency and other anemia (1 source) Anemia, unspecified; Translations: [Anemia, unspecified] Onset: 06-20-2025 Episodic Results Test Name Value Interpretation Reference Range Facility 12 Lead EKGon 08-01-2025 12 Lead EKG [facility] Cardiovascular Services [address] [place] [address] 12 Lead EKG 08/01/25 0937 MR#: [id number] Acct: [id number] Name: MUNA IRBY Rep #: [id number] : 1960 64 From: José Luis Araujo MD Attending Dr: Dr. Jayro Wilson MD Status: DEP [facility] Ordering Dr: Corey Edmonds MD Date: 08/01/25 Location: EN Sex: F C Admitted: Test Reason : ARRYTHMIA Blood Pressure : */* mmHG Vent. Rate : 67 BPM Atrial Rate : 67 BPM P-R Int : 146 ms QRS Dur : 80 ms QT Int : 420 ms P-R-T Axes : 8 42 36 degrees QTcB Int : 443 ms Sinus rhythm with marked sinus arrhythmia Otherwise normal ECG No previous ECGs available Confirmed by José Luis Araujo ([id number]), pictures editor RUFINA MOORE ([id number]) on 08/08/2025 7:54:13 AM Referred By: Rufina Bowman Confirmed By: José Luis Araujo 08/08/25 0754 Date José Luis Araujo MD CC: PLASTIC BOAT PATCHER-C Rufina Bowman; Dr. Jayro Wilson MD; Dr. Corey Edmonds MD Signed Normal [facility] Colonoscopy Reporton 025 Colonoscopy Report [facility] Medical Records Department [address] [place] [address] Colonoscopy Report MR#: [id number] Acct: [id number] Name: MUNA IRBY Rep #: [id number] : 1960 64 From: Jayro Wilson MD PCP: GREG Ponce Status:REG [facility] Patient Name: Muna Irby Procedure Date: 08/01/2025 9:16 AM Date of : 1960 Age: 64 Procedure: Colonoscopy Indications: Iron deficiency anemia Providers: Jayro Wilson MD Medicines: Propofol per Anesthesia Patient Profile: This is a 64 year old female. Refer to note in patient chart for documentation of history and physical. Last Colonoscopy: none. The patient's first colonoscopy is today. Complications: No immediate complications. Estimated blood loss: Minimal. Procedure: Pre-Anesthesia Assessment: - Prior to the procedure, a History and Physical was performed, and patient medications and allergies were reviewed. The patient's tolerance of previous anesthesia was also reviewed. The risks and benefits of the procedure and the sedation options and risks were discussed with the patient. All questions were answered, and informed consent was obtained. Prior Anticoagulants: The patient has taken no anticoagulant or antiplatelet agents. After reviewing the risks and benefits, the patient was deemed in satisfactory condition to undergo the procedure. - Prior to the procedure, a History and Physical was performed, and patient medications and allergies were reviewed. The patient's tolerance of previous anesthesia was also reviewed. The risks and benefits of the procedure and the sedation options and risks were discussed with the patient. All questions were answered, and informed consent was obtained. Prior Anticoagulants: The patient has taken no anticoagulant or antiplatelet agents. After reviewing the risks and benefits, the patient was deemed in satisfactory condition to undergo the procedure. After I obtained informed consent, the scope was passed under direct vision. Throughout the procedure, the patient's blood pressure, pulse, and oxygen saturations were monitored continuously. The Colonoscope was introduced through the anus and advanced to the cecum, identified by appendiceal orifice and ileocecal valve. The colonoscopy was performed without difficulty. The patient tolerated the procedure well. The quality of the bowel preparation was good. The ileocecal valve, appendiceal orifice, and rectum were photographed. Scope In: 9:16:44 AM Scope Withdrawal Time 0 hours 3 minutes 0 seconds Scope Out: 9:25:59 AM Total Procedure Duration Time 0 hours 9 minutes 15 seconds Findings: The entire examined colon appeared normal on direct and retroflexion views. Impression: - The entire examined colon is normal on direct and retroflexion views. - No specimens collected. Recommendation: - Discharge patient to home. - Resume previous diet. - Continue present medications. - Repeat colonoscopy in 10 years for screening purposes. Procedure Code(s): --- Professional --- 60872, Colonoscopy, flexible; diagnostic, including collection of specimen(s) by brushing or washing, when performed (separate procedure) Diagnosis Code(s): --- Professional --- D50.9, Iron deficiency anemia, unspecified CPT copyright 2021 [employer]. All rights reserved. The codes documented in this report are preliminary and upon remarketing rep review may be revised to meet current compliance requirements. Jayro Wilson MD 08/01/2025 9:31:06 AM This report has been signed electronically. Number of Addenda: 0 Note Initiated On: 08/01/2025 9:16 AM 08/01/25 0931 Date Jayro Neilignenrique Signature: Date (if indicated) CC: GREG Bowman; Dr. Jayro Wilson MD Date Dictated: 08/01/25 0916 Date Transcribed: Ambulatory Services Representative: KUSUM Signed Normal [facility] EGD Reporton 08-01-2025 EGD Report [facility] Medical Records Department [address] [place] [address] EGD Report MR#: [id number] Acct: [id number] Name: MUNA IRBY Rep #: [id number] : 1960 64 From: Jayro Wilson MD PCP: Rufina Bowman NP-C Status:REG [facility] Patient Name: Muna Irby Procedure Date: 08/01/2025 9:03 AM Date of : 1960 Age: 64 Procedure: Upper GI endoscopy Indications: Iron deficiency anemia Providers: Jayro Wilson MD Medicines: Propofol per Anesthesia Patient Profile: This is a 64 year old female. Refer to note in patient chart for documentation of history and physical. Complications: No immediate complications. Procedure: Pre-Anesthesia Assessment: - Prior to the procedure, a History and Physical was performed, and patient medications and allergies were reviewed. The patient's tolerance of previous anesthesia was also reviewed. The risks and benefits of the procedure and the sedation options and risks were discussed with the patient. All questions were answered, and informed consent was obtained. Prior Anticoagulants: The patient has taken no anticoagulant or antiplatelet agents. After reviewing the risks and benefits, the patient was deemed in satisfactory condition to undergo the procedure. After obtaining informed consent, the endoscope was passed under direct vision. Throughout the procedure, the patient's blood pressure, pulse, and oxygen saturations were monitored continuously. The Colonoscope was introduced through the mouth, and advanced to the third part of duodenum. The upper GI endoscopy was accomplished without difficulty. The patient tolerated the procedure well. Scope In: 9:13:07 AM Scope Out: 9:15:32 AM Total Procedure Duration Time 0 hours 2 minutes 25 seconds Findings: The esophagus was normal. The stomach was normal. The examined duodenum was normal. Impression: - Normal esophagus. - Normal stomach. - Normal examined duodenum. - No specimens collected. Recommendation: - Discharge patient to home. - Resume previous diet. - Continue present medications. Procedure Code(s): --- Professional --- 81033, Esophagogastroduodenos copy, flexible, transoral; diagnostic, including collection of specimen(s) by brushing or washing, when performed (separate procedure) Diagnosis Code(s): --- Professional --- D50.9, Iron deficiency anemia, unspecified CPT copyright 2021 [employer]. All rights reserved. The codes documented in this report are preliminary and upon remarketing rep review may be revised to meet current compliance requirements. Jayro Wilson MD 08/01/2025 9:29:19 AM This report has been signed electronically. Number of Addenda: 0 Note Initiated On: 08/01/2025 9:03 AM 08/01/25928 Date Jayro Wilson MD Cosign Signature: Date (if indicated) CC: PLASTIC BOAT PATCHER-C Rufina Bowman; Dr. Jayro Wilson MD Date Dictated: 08/01/25902 Date Transcribed: Ambulatory Services Representative: KUSUM [facility] MR/OP.Chi 08-01-2025 MR/OP.[facility] Medical Records Department [address] [place] [address] Provation Physician Letter MR#: [id number] Acct: [id number] Name: MUNA IRBY Rep #: [id number] : 1960 64 From: Jayro Wilson MD PCP: GREG Ponce Status:REG [facility] 08/01/2025 Rufina Bowman Np, Cupola Melter Helper-c Re : Colonoscopy procedure for Muna Irby Dear Gracie This procedure was performed on Friday, August 01, 2025. My impressions and recommendations are as follows: Impressions : - The entire examined colon is normal on direct and retroflexion views. - No specimens collected. Recommendations : - Discharge patient to home. - Resume previous diet. - Continue present medications. - Repeat colonoscopy in 10 years for screening purposes. My findings are described in the full procedure note, which is enclosed. If I can be of further assistance, please feel free to contact me at Doctor phone number(s): , Work: . Sincerely, Jayro Wilson MD 08/01/2025 9:31:06 AM This report has been signed electronically. 08/01/25930 Date Jayro Wilson [facility] Signature: Date (if indicated) CC: PLASTIC BOAT PATCHER-C Rufina Bowman; Dr. Jayro Wilson MD Date Dictated: 08/01/25915 Date Transcribed: Ambulatory Services Representative: KUSUM [facility] MR/OP.[facility] Medical Records Department [address] [place], [place] [address] [place] [address] Physician Letter MR#: [id number] Acct: [id number] Name: MUNA IRBY Rep #: [id number] : 1960 64 From: Jayro Wilson MD PCP: GREG Ponce Status:REG [facility] 08/01/2025 Rufina Bowman Np, Np-miguel Re : Upper GI endoscopy procedure for Muna Irby Dear Gracie This procedure was performed on Friday, August 01, 2025. My impressions and recommendations are as follows: Impressions : - Normal esophagus. - Normal stomach. - Normal examined duodenum. - No specimens collected. Recommendations : - Discharge patient to home. - Resume previous diet. - Continue present medications. My findings are described in the full procedure note, which is enclosed. If I can be of further assistance, please feel free to contact me at Doctor phone number(s): , Work: . Sincerely, Jayro Wilson MD 08/01/2025 9:29:19 AM This report has been signed electronically. 08/01/25928 Date Jayro Wilson MD Cosigner Signature: Date (if indicated) CC: PLASTIC BOAT PATCHER-C Rufina Bowman; Dr. Jayro Wilson MD Date Dictated: 08/01/25902 Date Transcribed: Ambulatory Services Representative: KUSUM [facility] MR/POSTOP.[facility] 08-01-2025 MR/POSTOP.[facility] Medical Records Department [address] [place] [address] Anesthesia Postop Eval I 08/01/25932 MR#: [id number] Acct: [id number] Name: MUNA IRBY Rep #: [id number] : 1960 64 From: Tiffanie Stewart CRNA PCP: Rufina Bowman, PLASTIC BOAT PATCHER-C Status:REG SDC Y Race: C Location: [place] [address] Anesthesia: Postop Eval I Current Vital Signs Temperature: 97 F Pulse Rate: 82 Blood Pressure: 100/55 Respiratory Rate: 16 Pulse Ox: 97 Oxygen Delivery Method: Room Air Assessment Airway patent: Yes Spontaneous unlabored respirations: Yes Mental status: Awake and Calm nausea: No Vomiting: No Anesthesia Complication: No Fluid Hydration Crystalloid volume administer (ml): 400 Total IV fluid infused: 400 Progress Note Anesthesia document: Postop Eval 1 completed: Yes 08/01/25933 Date Tiffanie Stewart [place] LINE ATTENDANT Cosigner Signature: Date CC: Signed Normal [facility] MR/[id number] 08-01-2025 MR/POSTOPAN2 [facility] Medical Records Department [address] [place] [address] Anesthesia Postop Eval II 08/01/25 1008 MR#: [id number] Acct: [id number] Name: MUNA IRBY Rep #: [id number] : 1960 64 From: Corey Edmonds MD PCP: Rufina Bowman PLASTIC BOAT PATCHER-C Status:REG SDC Y Race: C Location: [address] Anesthesia Postop Eval I Sum Postop Eval Completion status Anesthesia document: Postop Eval 1 completed: Yes Anesthesia Postop Eval I Summary Anesthesia Postop Eval I Summary: Anesthesia Postop Eval I: Assessment Summary Airway patent Yes 08/01/25 09:34 [place] LINE ATTENDANT.GDOTT Spontaneous unlabored Yes 08/01/25 09:34 [place]IR[place] LINE ATTENDANT.GDOTT respirations Mental status Awake,Calm 08/01/25 09:34 [place]IR[place] LINE ATTENDANT.GDOTT nausea No 08/01/25 09:34 [place]IR[place] LINE ATTENDANT.GDOTT Vomiting No 08/01/25 09:34 [place] LINE ATTENDANT.GDOTT Anesthesia Postop Eval I: Fluid Summary Crystalloid volume administer 400 08/01/25 09:34 [place] LINE ATTENDANT.GDOTT (ml) Colloids volume administered ( ml) Blood Product volume administered (ml) Total IV fluid infused 400 08/01/25 09:34 [place]IR[place] LINE ATTENDANT.GDOTT Anesthesia Postop Eval I: Summary Notes Anesthesia Complication No 08/01/25 09:34 [place]IR[place] LINE ATTENDANT.GDOTT Anesthesia Complication Comment: Post-operative progress note Anesthesia: Postop Eval II Evaluation Mental status: Awake and Calm Pain Level: 0 nausea: No Vomiting: No Progress Note Post-operative progress note: In PACU the patient showed some arrhythmia. Twelve-lead EKG showed sinus arrhythmia. I called the primary care physician and they stated they had not seen the patient since 2019. I made an appointment for the patient to see them tomorrow at 10:40 AM the patient is in agreement. The patient feels well and normal at baseline. No complaints of any blurred vision or lightheadedness. She feels completely fine. Complications Anesthesia Complication: No 08/01/25 1009 Date Corey Edmonds MD Cosigner Signature: Date CC: Signed Normal [facility] Surgery Visit Reporton 07-10 Surgery Visit Report [facility] [address] [place] [address] OFFICE VISIT Date of Service: 07/10/25 MR#: [id number] Acct: [id number] Name: MUNA IRBY Rep #: [id number] : 1960 Provider: Dr. Jayro babcock MD Age/Sex: 64/F Location: [facility] Status: Signed Intake Vital Signs 06/14/25 11:49 07/10/25 08:34 Height 5 ft 4 in 5 ft 4 in Weight: 187 lb 6 oz BMI 32.1 BP 145/97 H Blood Pressure Location Lt radial Position Sitting Respiration 17 Pulse 66 Pulse Source Monitor Temp 97.2 F L Temp Source Temporal Pulse Oximetry (%) 98 Oxygen Delivery Method room air Intake Visit Reasons: Anemia Chief Complaint: anemia Is patient in pain?: No Allergies No Known Allergies Allergy (Verified 07/10/25 08:36) Medications ???Medication ???Instructions ???Recorded ???Confirmed ???Type ferrous sulfate 325 mg (65 mg 325 mg PO QDAY 07/10/25 07/10/25 H istory iron) tablet Have you fallen in the past year?: No PFSH Medical History (Updated 07/10/25 @ 08:34 by Lien Reich LPN) Iron deficiency anemia Anemia requiring transfusions Social History (Updated 07/10/25 @ 08:34 by Lien Damir, STOREHOUSE CLERK) Smoking Status: Never smoker alcohol intake: never substance use type: does not use HPI HPI HPI: Patient is a 64-year-old female here with anemia. Patient does not note any gross blood per stool. She denies abdominal pain. She saw her doctor in early June and was found to have a hemoglobin of 6 and had 2 units of blood. She feels much better now. She has never had a colonoscopy or EGD. ROS General General: Yes fatigue; No weight change, appetite, colon cancer, breast cancer or weakness HEENT HEENT: No difficulty swallowing, eye injury, eye surgery, swollen glands or hoarseness Endo Endocrine: No thyroid disease, diabetes mellitus, thyroid cancer, Hair loss, heat intolerance or cold intolerance Skin Skin: No rash or changing moles Musc Musculoskeletal: No back problems, arthritis, rheumatoid arthritis, gout or joint pain Cardio Cardiovascular: No murmur, pacemaker, heart disease, atrial fibrillation, high blood pressure, heart attack, heart stent, palpitations, shortness of breath with exertion or chest pain Psych Psychiatric: No depression, anxiety or hearing voices Resp Respiratory: Yes shortness of breath, No sleep apnea, No cough, No COPD, No asthma, No emphysema and No wheezing Gastro Gastrointestinal: No abdominal pain, No nausea or vomiting, No diarrhea, No constipation, No blood in stool, No acid reflux, No hemorrhoids, No ulcers, No gallbladder problem and No black,tarry stools Ti Hematologic: No blood thinners, No blood disorders, No bleeding, No anemia and No blood clots Neuro Neurologic: No numbness, No tingling and No weakness Exam Const General: cooperative Orientation: alert and oriented x3 HENLA Head: normal to inspection Neck Neck: normal visual inspection and full ROM Chest Chest palpation inspection: normal inspection of the chest Resp Effort Inspection: normal respiratory effort Auscultation: clear to auscultation bilaterally Cardio Rate: regular rate Rhythm: regular rhythm GI Inspection: non-distended Palpation: soft and nontender Skin General: no rashes or lesions noted Neuro General: patient alert and patient oriented x3 Extrem General: full ROM Psych Appearance: grossly normal Mental Status: mental status grossly normal Assessment and Plan Assessment and Plan (1) Anemia: Qualifiers: Anemia type: iron deficiency Iron deficiency anemia type: unspecified iron deficiency Qualified Code(s): D50.9 - Iron deficiency anemia, unspecified Plan: Patient has iron deficiency anemia. I recommended upper and lower scope to evaluate the GI tract. I explained endoscopy in detail to the patient. I explained the risks including but not limited to stroke or heart attack with anesthesia, perforation of the GI tract, bleeding, infection. I explained that any of these could necessitate further emergency surgery. The patient understands and all questions were answered sufficiently. The patient wishes to proceed with procedure. Jayro Wilson MD Pager: [facility] [address] [place] [address], [address] [place] [address] Office: Coding Level of Care Code Off vis,new,level 3 Diagnoses Iron deficiency anemia, unspecified iron deficiency anemia type D50.9 Anemia type: iron deficiency Iron deficiency anemia type: unspecified iron deficiency Clinical Quality Measures Falls Risk Screening/Assistive Devices Have you fallen in the past year?: No 07/10/25 0840 Date (more content not included)... Normal [facility] CBC W/Diff, Automatedon 06-05 Anisocytosis Ql (Bld) 2+ Normal [facility] Comment on above: Performed By: #### L 503.6030, L503.6550, L500.4050, L100.0100 ####[facility] [id number] [place], [address] OVALOCYTE 1+ Normal [facility] Comment on above: Performed By: #### L 503.6030, L503.6550, L500.4050, L100.0100 ####[facility] [id number] [place], [address] POLYCHROMASIA 1+ Normal [facility] Comment on above: Performed By: #### L 503.6030, L503.6550, L500.4050, L100.0100 ####[facility] [id number] [place], [address] Comprehensive Metabolic Prof kson 06-20-2025 Albumin [Mass/Vol] 4.2 g/dL Normal 3.4-4.8 [facility] Comment on above: Performed By: #### L 503.6030, L503.6550, L500.4050, L100.0100 ####[facility] [id number] [place], [address] Albumin/Globulin [Mass ratio] 1.5 {ratio} Normal 0.9-2.4 [facility] Comment on above: Performed By: #### L 503.6030, L503.6550, L500.4050, L100.0100 ####[facility] [id number] [place], [address] ALK PHOS 74 U/L Normal 35-104 [facility] Comment on above: Performed By: #### L 503.6030, L503.6550, L500.4050, L100.0100 ####[facility] [address] [place], [address] ALT [Catalytic activity/Vol] 15 U/L Normal <=34 [facility] Comment on above: Performed By: #### L 503.6030, L503.6550, L500.4050, L100.0100 ####[facility] [address] [place], [address] AST [Catalytic activity/Vol] 20 U/L Normal <=31 [facility] Comment on above: Performed By: #### L 503.6030, L503.6550, L500.4050, L100.0100 ####[facility] [address] [place], [address] Bilirubin [Mass/Vol] 0.64 mg/dL Normal 0.00-1.30 [facility] Comment on above: Performed By: #### L 503.6030, L503.6550, L500.4050, L100.0100 ####[facility] [address] [place], [address] BUN/CRE 13.5 RATIO Normal 10-20 [facility] Comment on above: Performed By: #### L 503.6030, L503.6550, L500.4050, L100.0100 ####[facility] [address] [place], [address] Calcium [Mass/Vol] 9.6 mg/dL Normal 7.6-11.0 [facility] Comment on above: Performed By: #### L 503.6030, L503.6550, L500.4050, L100.0100 ####[facility] [address] [place], [address] Chloride [Moles/Vol] 106 mmol/L Normal 98-108 [facility] Comment on above: Performed By: #### L 503.6030, L503.6550, L500.4050, L100.0100 ####[facility] [address] [place], [address] CO2 [Moles/Vol] 21.7 mmol/L Normal 21.0-32.0 [facility] Comment on above: Performed By: #### L 503.6030, L503.6550, L500.4050, L100.0100 ####[facility] [address] [place], [address] Creatinine [Mass/Vol] 0.90 mg/dL Normal 0.70-1.20 [facility] Comment on above: Performed By: #### L 503.6030, L503.6550, L500.4050, L100.0100 ####[facility] [address] [place], [address] GAP 12 Normal 5-15 [facility] Comment on above: Performed By: #### L 503.6030, L503.6550, L500.4050, L100.0100 ####[facility] [address] [place], [address] GFR/1.73 sq M.predicted among non-blacks MDRD (S/P/Bld) [Vol rate/Area] 71 mL/min/{1.73_m2} Normal >60 [facility] Comment on above: Result Comment: mL/m in/1.73m2 CKD-EPI Creatinine Equation (2020) Performed By: #### L 503.6030, L503.6550, L500.4050, L100.0100 ####[facility] [address] [place], [address] Globulin (S) [Mass/Vol] 2.8 g/dL Normal 2.2-4.2 [facility] Comment on above: Performed By: #### L 503.6030, L503.6550, L500.4050, L100.0100 ####[facility] [address] [place], [address] Glucose [Mass/Vol] 96 mg/dL Normal 70-99 [facility] Comment on above: Performed By: #### L 503.6030, L503.6550, L500.4050, L100.0100 ####[facility] [address] [place], [address] Potassium [Moles/Vol] 4.2 mmol/L Normal 3.3-5.1 [facility] Comment on above: Performed By: #### L 503.6030, L503.6550, L500.4050, L100.0100 ####[facility] [address] [place], [address] Sodium [Moles/Vol] 140 mmol/L Normal 133-145 [facility] Comment on above: Performed By: #### L 503.6030, L503.6550, L500.4050, L100.0100 ####[facility] [address] [place], [address] T PROT 7.0 g/dL Normal 5.9-8.4 [facility] Comment on above: Performed By: #### L 503.6030, L503.6550, L500.4050, L100.0100 ####[facility] [address] [place], [address] Urea nitrogen [Mass/Vol] 12 mg/dL Normal 4-19 [facility] Comment on above: Performed By: #### L 503.6030, L503.6550, L500.4050, L100.0100 ####[facility] [address] [place], [address] Ferritinon 06-20-2025 Ferritin [Mass/Vol] 23 ng/mL Normal 22-378 [facility] Comment on above: Performed By: #### L 503.6030, L503.6550, L500.4050, L100.0100 ####[facility] [address] [place], [address] Iron+Iron Binding Capacityon 06-20-2025 Iron [Mass/Vol] 24 ug/dL Low 50-170 [facility] Comment on above: Performed By: #### L 503.6030, L503.6550, L500.4050, L100.0100 ####[facility] [address] [place], [address] IRON SATURATION 5.7 Low 13-59 [facility] Comment on above: Performed By: #### L 503.6030, L503.6550, L500.4050, L100.0100 ####[facility] [address] [place], [address] TIBC 423 ug/dL Normal 250-450 [facility] Comment on above: Performed By: #### L 503.6030, L503.6550, L500.4050, L100.0100 ####[facility] [address] [place], [address] UIBC 399 ug/dL Normal 228-428 [facility] Comment on above: Performed By: #### L 503.6030, L503.6550, L500.4050, L100.0100 ####[facility] [address] [place], [address] Basic Metabolic Profile (BMP )on 06-15-2025 BUN Normal 4-19 [facility] Comment on above: Result Comment: Canc elled via OM: Order cancelled - Patient discharged Performed By: #### L 500.2500, L100.0100 ####[facility] [address] [place], [address] BUN/CRE Normal 10-20 [facility] Comment on above: Result Comment: Canc elled via OM: Order cancelled - Patient discharged Performed By: #### L 500.2500, L100.0100 ####[facility] [address] [place], [address] Calcium Normal 7.6-11.0 [facility] Comment on above: Result Comment: Canc elled via OM: Order cancelled - Patient discharged Performed By: #### L 500.2500, L100.0100 ####[facility] [address] [place], [address] CL Normal 98-108 [facility] Comment on above: Result Comment: Canc elled via OM: Order cancelled - Patient discharged Performed By: #### L 500.2500, L100.0100 ####[facility] [address] [place], [address] CO2 Normal 21.0-32.0 [facility] Comment on above: Result Comment: Canc elled via OM: Order cancelled - Patient discharged Performed By: #### L 500.2500, L100.0100 ####[facility] [address] [place], [address] CREAT,SERUM Normal 0.70-1.20 [facility] Comment on above: Result Comment: Canc elled via OM: Order cancelled - Patient discharged Performed By: #### L 500.2500, L100.0100 ####[facility] [address] [place], [address] eGFR Normal >60 [facility] Comment on above: Result Comment: Canc elled via OM: Order cancelled - Patient discharged Performed By: #### L 500.2500, L100.0100 ####[facility] [address] [place], [address] GAP Normal 5-15 [facility] Comment on above: Result Comment: Canc elled via OM: Order cancelled - Patient discharged Performed By: #### L 500.2500, L100.0100 ####[facility] [address] [place], [address] GLU Normal 70-99 [facility] Comment on above: Result Comment: Canc elled via OM: Order cancelled - Patient discharged Performed By: #### L 500.2500, L100.0100 ####[facility] [address] [place], [address] Potassium Normal 3.3-5.1 [facility] Comment on above: Result Comment: Canc elled via OM: Order cancelled - Patient discharged Performed By: #### L 500.2500, L100.0100 ####[facility] [address] [place], [address] Basic Metabolic Profile (BMP) Normal 133-145 [facility] Comment on above: Result Comment: Canc elled via OM: Order cancelled - Patient discharged Performed By: #### L 500.2500, L100.0100 ####[facility] [address] [place], [address] CBC W/Diff, Automatedon 09-1 Absolute Neut Normal 2.0-7.7 [facility] Comment on above: Result Comment: Canc elled via OM: Order cancelled - Patient discharged Performed By: #### L 500.2500, L100.0100 ####[facility] [address] [place], [address] HCT Normal 37-47 [facility] Comment on above: Result Comment: Canc elled via OM: Order cancelled - Patient discharged Performed By: #### L 500.2500, L100.0100 ####[facility] [address] [place], [address] HGB Normal 12.0-15.0 [facility] Comment on above: Result Comment: Canc elled via OM: Order cancelled - Patient discharged Performed By: #### L 500.2500, L100.0100 ####[facility] [address] [place], [address] MCH Normal 27.0-32.0 [facility] Comment on above: Result Comment: Canc elled via OM: Order cancelled - Patient discharged Performed By: #### L 500.2500, L100.0100 ####[facility] [address] [place], [address] MCHC Normal 32-36 [facility] Comment on above: Result Comment: Canc elled via OM: Order cancelled - Patient discharged Performed By: #### L 500.2500, L100.0100 ####[facility] [address] [place], [address] MCV Normal 81-99 [facility] Comment on above: Result Comment: Canc elled via OM: Order cancelled - Patient discharged Performed By: #### L 500.2500, L100.0100 ####[facility] [address] [place], [address] NEUT% Normal 47-70 [facility] Comment on above: Result Comment: Canc elled via OM: Order cancelled - Patient discharged Performed By: #### L 500.2500, L100.0100 ####[facility] [address] [place], [address] PLT Normal 150-450 [facility] Comment on above: Result Comment: Canc elled via OM: Order cancelled - Patient discharged Performed By: #### L 500.2500, L100.0100 ####[facility] [address] [place], [address] RBC Normal 4.2-5.4 [facility] Comment on above: Result Comment: Canc elled via OM: Order cancelled - Patient discharged Performed By: #### L 500.2500, L100.0100 ####[facility] [address] [place], [address] RDW CV Normal 11.6-14.6 [facility] Comment on above: Result Comment: Canc elled via OM: Order cancelled - Patient discharged Performed By: #### L 500.2500, L100.0100 ####[facility] [address] [place], [address] RDW SD Normal 35.1-43.9 [facility] Comment on above: Result Comment: Canc elled via OM: Order cancelled - Patient discharged Performed By: #### L 500.2500, L100.0100 ####[facility] [address] [place], [address] WBC Normal 4.4-11.0 [facility] Comment on above: Result Comment: Canc elled via OM: Order cancelled - Patient discharged Performed By: #### L 500.2500, L100.0100 ####[facility] [address] [place], [address] Liver Profileon 06-15-2025 ALB Normal 3.4-4.8 [facility] Comment on above: Result Comment: Canc elled via OM: Order cancelled - Patient discharged Performed By: #### L 500.3400 ####[facility] [address] [place], [address] ALK PHOS Normal 35-104 [facility] Comment on above: Result Comment: Canc elled via OM: Order cancelled - Patient discharged Performed By: #### L 500.3400 ####[facility] [address] [place], [address] ALT Normal <=34 [facility] Comment on above: Result Comment: Canc elled via OM: Order cancelled - Patient discharged Performed By: #### L 500.3400 ####[facility] [address] [place], [address] AST Normal <=31 [facility] Comment on above: Result Comment: Canc elled via OM: Order cancelled - Patient discharged Performed By: #### L 500.3400 ####[facility] [address] [place], [address] D BILI Normal 0.00-0.30 [facility] Comment on above: Result Comment: Canc elled via OM: Order cancelled - Patient discharged Performed By: #### L 500.3400 ####[facility] [address] [place], [address] T BILI Normal 0.00-1.30 [facility] Comment on above: Result Comment: Canc elled via OM: Order cancelled - Patient discharged Performed By: #### L 500.3400 ####[facility] [address] [place], [address] T PROT Normal 5.9-8.4 [facility] Comment on above: Result Comment: Canc elled via OM: Order cancelled - Patient discharged Performed By: #### L 500.3400 ####[facility] [address] [place], [address] Absolute lymphocyte countOrd ered By: Lenny Herrera on 06-14-2025 Lymphocytes Auto (Unsp spec) [#/Vol] 1.41 10*3/uL 0.83-4.51 [facility] Absolute neutrophil countOrd ered By: Lenny Herrera on 06-14-2025 Neutrophils (Bld) [#/Vol] 2.7 10*3/uL 2.0-7.7 [facility] Anion gap in Serum or Plasma Ordered By: Lenny Herrera on 06-14-2025 Anion gap [Moles/Vol] 12 mmol/L 5- [facility] Automated lymphocyte count a s percentage of total leukocytesOrdered By: Lenny Herrera on 06-14-2025 Lymphocytes/100 WBC Auto (Unsp spec) 28.3 % [facility] BRCon 06-14-2025 RC Normal [facility] Comment on above: Result Comment: [id number] ON RC TRANSFUSED 06/14/25 1513 [id number] ON RC TRANSFUSED 06/14/25 0957 Performed By: #### L 100.0100, [facility], BTS, L500.2500 ####[facility] [address] [place], [address] BUN/creatinine ratioOrdered By: Lenny Herrera on 06-14-2025 Urea nitrogen/Creatinine [Mass ratio] 17.4 mg/mg 07-24 [facility] Basic Metabolic Profile (BMP )on 06-14-2025 BUN/CRE 17.4 RATIO Normal 07-24 [facility] Comment on above: Performed By: #### L 100.0100, [facility], BTS, L500.2500 ####[facility] [address] [place], [address] Calcium [Mass/Vol] 9.2 mg/dL Normal 7.6-11.0 [facility] Comment on above: Performed By: #### L 100.0100, BR, BTS, L500.2500 ####[facility] [address] [place], [address] Chloride [Moles/Vol] 109 mmol/L High 98-108 [facility] Comment on above: Performed By: #### L 100.0100, [facility], BTS, L500.2500 ####[facility] [address] [place], [address] CO2 [Moles/Vol] 22.9 mmol/L Normal 21.0-32.0 [facility] Comment on above: Performed By: #### L 100.0100, [facility], BTS, L500.2500 ####[facility] [address] [place], [address] Creatinine [Mass/Vol] 0.79 mg/dL Normal 0.70-1.20 [facility] Comment on above: Performed By: #### L 100.0100, [facility], BTS, L500.2500 ####[facility] [address] [place], [address] ECRCL 75.48 ml/min Normal 50-250 [facility] Comment on above: Performed By: #### L 100.0100, [facility], BTS, L500.2500 ####[facility] [address] [place], [address] GAP 12 Normal 5-15 [facility] Comment on above: Performed By: #### L 100.0100, [facility], BTS, L500.2500 ####[facility] [address] [place], [address] GFR/1.73 sq M.predicted among non-blacks MDRD (S/P/Bld) [Vol rate/Area] 83 mL/min/{1.73_m2} Normal >60 [facility] Comment on above: Result Comment: mL/m in/1.73m2 CKD-EPI Creatinine Equation (2020) Performed By: #### L 100.0100, [facility], BTS, L500.2500 ####[facility] [address] [place], [address] Glucose [Mass/Vol] 96 mg/dL Normal 70-99 [facility] Comment on above: Performed By: #### L 100.0100, [facility], BTS, L500.2500 ####[facility] [address] [place], [address] Potassium [Moles/Vol] 4.1 mmol/L Normal 3.3-5.1 [facility] Comment on above: Performed By: #### L 100.0100, [facility], BTS, L500.2500 ####[facility] [address] [place], [address] Sodium [Moles/Vol] 144 mmol/L Normal 133-145 [facility] Comment on above: Performed By: #### L 100.0100, [facility], BTS, L500.2500 ####[facility] [address] [place], [address] Urea nitrogen [Mass/Vol] 14 mg/dL Normal 4-19 [facility] Comment on above: Performed By: #### L 100.0100, [facility], BTS, L500.2500 ####[facility] [address] [place], [address] Basophil percentageOrdered B y: Lenny Herrera on 06-14-2025 Basophils/100 WBC (Bld) 1.6 % High 0-1 [facility] CBC W/Diff, Automatedon 06-05-2024 Absolute Lymph 1.41 X10 3/uL Normal 0.83-4.51 [facility] Comment on above: Performed By: #### L 100.0100, [facility], BTS, L500.2500 ####[facility] [address] [place], [address] Absolute Neut 2.7 X10 3/uL Normal 2.0-7.7 [facility] Comment on above: Performed By: #### L 100.0100, [facility], BTS, L500.2500 ####[facility] [address] [place], [address] Basophils/100 WBC (Bld) 1.6 % High 0-1 [facility] Comment on above: Performed By: #### L 100.0100, BRC, BTS, L500.2500 ####[facility] [address] [place], [address] Eosinophils/100 WBC (Bld) 3.6 % Normal 0-5 [facility] Comment on above: Performed By: #### L 100.0100, BRC, BTS, L500.2500 ####[facility] [address] [place], [address] Erythrocyte distribution width (RBC) [Ratio] 19.1 % High 11.6-14.6 [facility] Comment on above: Performed By: #### L 100.0100, BRC, BTS, L500.2500 ####[facility] [address] [place], [address] Hematocrit (Bld) [Volume fraction] 24.8 % Low 37-47 [facility] Comment on above: Performed By: #### L 100.0100, BRC, BTS, L500.2500 ####[facility] [address] [place], [address] Hemoglobin (Bld) [Mass/Vol] 6.6 g/dL Low 12.0-15.0 [facility] Comment on above: Performed By: #### L 100.0100, BRC, BTS, L500.2500 ####[facility] [address] [place], [address] IG% 0.200 Normal 0.0-0.9 [facility] Comment on above: Result Comment: IG% - Immature Granulocytes (promyelocytes, myelocytes and metamyelocytes) > 1% indicates that a LEFT SHIFT is Present. Performed By: #### L 100.0100, [facility], BTS, L500.2500 ####[facility] [address] [place], [address] Lymphocytes/100 WBC (Bld) 28.3 % Normal 19-41 [facility] Comment on above: Performed By: #### L 100.0100, BRC, BTS, L500.2500 ####[facility] [address] [place], [address] MCH (RBC) [Entitic mass] 19.0 pg Low 27.0-32.0 [facility] Comment on above: Performed By: #### L 100.0100, BRC, BTS, L500.2500 ####[facility] [address] [place], [address] MCHC (RBC) [Mass/Vol] 26.6 g/dL Low 32-36 [facility] Comment on above: Performed By: #### L 100.0100, BRC, BTS, L500.2500 ####[facility] [address] [place], [address] MCV (RBC) [Entitic vol] 71.3 fL Low 81-99 [facility] Comment on above: Performed By: #### L 100.0100, BRC, BTS, L500.2500 ####[facility] [address] [place], [address] Monocytes/100 WBC (Bld) 11.4 % High 0-10 [facility] Comment on above: Performed By: #### L 100.0100, BRC, BTS, L500.2500 ####[facility] [address] [place], [address] Neutrophils/100 WBC (Bld) 54.9 % Normal 47-70 [facility] Comment on above: Performed By: #### L 100.0100, BRC, BTS, L500.2500 ####[facility] [address] [place], [address] Nucleated RBC (Bld) [#/Vol] 0 10*3/uL Normal 0-5 [facility] Comment on above: Performed By: #### L 100.0100, BRC, BTS, L500.2500 ####[facility] [address] [place], [address] Platelet mean volume (Bld) [Entitic vol] 10.3 fL Normal 6.2-12.0 [facility] Comment on above: Performed By: #### L 100.0100, BRC, BTS, L500.2500 ####[facility] [address] [place], [address] Platelets (Bld) [#/Vol] 282 10*3/uL Normal 150-450 [facility] Comment on above: Performed By: #### L 100.0100, BRC, BTS, L500.2500 ####[facility] [address] [place], [address] RBC (Bld) [#/Vol] 3.48 10*6/uL Low 4.2-5.4 [facility] Comment on above: Performed By: #### L 100.0100, BRC, BTS, L500.2500 ####[facility] [address] [place], [address] RDW SD 49.1 fl High 35.1-43.9 [facility] Comment on above: Performed By: #### L 100.0100, BRC, BTS, L500.2500 ####[facility] [address] [place], [address] WBC (Bld) [#/Vol] 5.0 10*3/uL Normal 4.4-11.0 [facility] Comment on above: Performed By: #### L 100.0100, BRC, BTS, L500.2500 ####[facility] [address] [place], [address] Carbon dioxide, total [Moles /volume] in Central venous bloodOrdered By: Lenny Herrera on 06-14-2025 CO2 [Moles/Vol] 22.9 mmol/L 21.0-32.0 [facility] Chloride assayOrdered By: Gokul Herrera on 06-14-2025 Chloride [Moles/Vol] 109 mmol/L High 98-108 [facility] Emergency Department Summary on 06-14-2025 Emergency Department Summary [facility] Medical Records Department [address] [place] [address] Emergency Department Summary 06/14/25 MR#: [id number] Acct: [id number] Name: MUNA IRBY Rep #: [id number] : 1960 64 From: Lenny Herrera MD PCP: Rufina Bowman [employer]-C Status:DIS IN Location: [place] [address] HPI History of Present Illness Chief Complaint: Abn Labs Informant: patient Onset/Context/Timing Onset: Weeks Context: Gradual Onset Timing: Continuous Current Severity: Mild Maximum Severity: Mild Narrative Narrative: 64-year-old female no significant past medical history. States that she had labs drawn about 1-1/2 weeks ago around June 02 was called said her hemoglobin was 6.2 and was referred to the ER. Said people been telling her she has been pale. Says she just felt generally weak. She denies any melena. No history of anemia or kidney disease. No prior transfusion. She denies any black or bloody stool. Prior similar symptoms: No Recent Illness/Hospitalizatio n: No PFSH PFSH Medical History no medical history no medical history Home Medications ???Medication ???Instructions ???Recorded ???Last Taken ???Type cephalexin 500 mg capsule (Keflex) 500 mg PO 4X/DAY ##20 05/22/17 U nknown Rx sulfamethoxazole 800 1 tab PO BID ##10 05/22/17 Unknown Rx mg-trimethoprim 160 mg tablet Allergy/AdvReac Type Severity Reaction Status Date / Time No Known Allergies Allergy Verified 05/22/17 10:09 Social History Smoking Status: Never smoker ROS ROS ED ROS Narrative Generalized weakness. Constitutional Constitutional ED: Denies chills or fever(s) Eyes Eyes: Denies blurry vision ENT ENT ED: Denies ear pain Cardiovascular Cardiovascular: Denies chest pain Respiratory/Chest Respiratory/Chest: Denies cough Gastrointestinal Gastrointestinal: Denies abdominal pain Genitourinary Genitourinary ED: Denies dysuria or hematuria Musculoskeletal Musculoskeletal: Denies arthralgias Integumentary Denies abscess Neurologic Neurologic: Denies headache(s) Psychiatric Psychiatric: Denies anxiety Endocrine Endocrinology: Denies cold intolerance Hematologic/Lymphatic Hematologic/Lymphatic: Reports none Allergic/Immunologic Allergic/Immunologic ED: Denies mouth swelling, tongue swelling or urticaria EXAM Physical Exam Narrative Exam Narrative: Well-appearing 64-year-old female. Vital signs are stable afebrile. Pulse ox 100% on room air no hypoxia. She is in no distress. She is accompanied by her verbally. H EENT exam pupils are round reactive light. Moist mutes members. Neck nontender no JVD. No lymphadenopathy. Lungs clear to auscultation bilaterally. Heart regular rhythm no murmur. Chest wall and ribs are nontender. Abdomen soft nontender. Patient is moving all 4 extremities. Nontender no edema. Skin she appears pale. Neurologically she is awake alert. Answer questions following commands. Back nontender. Const Vital Signs: 06/14/25 08:08 06/14/25 08:36 Temperature 97.2 F L Temperature Source Temporal Pulse Rate 77 Respiratory Rate 16 Respiratory Effort Normal Non-Labored Respiratory Pattern Normal Blood Pressure 154/81 H Blood Pressure Mean 105 Pulse Ox 100 Oxygen Delivery Method Room Air Positive well nourished and well developed; Negative for cachectic, contractures or unkempt General Appearance ED: well developed, NAD and pallor; Negative for unkempt, cachectic, contractures, cyanotic or diaphoretic Nutritional Appearance: Negative for cachectic HEENT Reports moist mucous membranes Eyes PERRL and EOMs intact bilaterally Neck no lymphadenopathy, supple and no JVD Chest Wall inspection of chest normal and palpation of chest normal Resp normal respiratory effort and clear to auscultation bilaterally Cardio regular rate, regular rhythm, S1 normal heart sound, S2 normal heart sound and no murmurs GI normal to inspection, nondistended, normoactive bowel sounds, non-tender, non-distended and no masses Auscultation: normoactive bowel sounds Palpation: soft; Negative for tender, guarding, mass or rebound tenderness present Back/Spine no CVA tenderness General Back: Negative for CVA tenderness Cervical Spine: Negative for cervical spine tenderness Thoracic Spine / Upper Back: Negative for thoracic spinal tenderness or paraspinal muscle tenderness Lumbar Spine / Lower Back: Negative for lumbar spinal tenderness Extremity normal to inspection General Extremety ED: Negative for edema or tenderness General Extremity: Negative for edema Neuro oriented x3 and CN's II-XII intact bilaterally Sensorium / Orientation: alert Motor Exam: strength 5/5 throughout Psych mental status grossly normal Appearance: Negati (more content not included)... Normal [facility] Eosinophil percentageOrdered By: Lenny Herrera on 06-14-2025 Eosinophils/100 WBC (Bld) 3.6 % 0-5 [facility] Erythrocyte distribution wid th ratioOrdered By: Lenny Herrera on 06-14-2025 Erythrocyte distribution width (RBC) [Ratio] 19.1 % High 11.6-14.6 [facility] Erythrocyte distribution wid th standard deviationOrdered By: Lenny Herrera on 06-14-2025 Erythrocyte distribution width (RBC) [Ratio] 49.1 fl High 35.1-43.9 [facility] Ferritinon 06-14-2025 Ferritin [Mass/Vol] 6 ng/mL Low 22-378 [facility] Comment on above: Performed By: #### L 503.6550, L100.9950, L503.0106, L503.6030, L506.0200 ####[facility] [address] [place], [address] Folate [Mass/volume] in Seru m or PlasmaOrdered By: Dante Hannah on 06-14-2025 Folate [Mass/Vol] 15.40 ng/mL 4.60-34.80 [facility] Comment on above: Hemolysis, Results w ill be affected, Requires Recollection. Folates,Serum (Folic Acid)on 06-14-2025 FOLATES,SERUM 15.40 ng/mL Normal 4.60-34.80 [facility] Comment on above: Result Comment: Hemo lysis, Results will be affected, Requires Recollection. Performed By: #### L 503.6550, L100.9950, L503.0106, L503.6030, L506.0200 #### [facility] [address] [place], [address] Glomerular filtration rate ( GFR) estimation/1.73 sq m using serum, plasma, or whole bOrdered By: Lenny Herrera on 06-14-2025 GFR/1.73 sq M.predicted among non-blacks MDRD (S/P/Bld) [Vol rate/Area] 83 mL/min/{1.73_m2} >60 [facility] Comment on above: mL/min/1.73m2 CKD-EP I Creatinine Equation (2020) H AND P Exam - [facility] 06-14-2025 H&P Exam - Hospitalist [facility] Records Department [address] [place] [address] H P Exam - Hospitalist 06/14/25 1005 MR#: [id number] Acct: [id number] Name: MUNA IRBY Rep #: [id number] : 1960 64 From: Dante Hannah MD PCP: GREG Ponce Status:ADM IN Location: [address] [facility] - General General Date of Admission: 06/14/25 Date of Service: 06/14/25 Chief Complaint: Very severe anemia from outpatient lab HPI Narrative MUNA IRBY, is a 64 F was sent by PCP for low hemoglobin, blood was drawn on 06/02 and was 6.6 g. In ED, H H found 6.6 24.8%. Microcytic, platelet count 282K. She denies any associated symptom of chest pain pressure tightness, dizziness lightheadedness although she feels dyspnea on exertion when climbing 1 flight of stairs. Denies GI bleed including hematemesis melena or hematochezia. Did not had colonoscopy or EGD in the past. Denies first- degree family history of colon patient cancer. No nausea or vomiting. Patient not on any blood thinner or antiplatelet agent Or NSAID 2 L of PRBC type and crossmatch ordered by ER physician and further admitted [facility] Medical History no medical history Home Medications ???Medication ???Instructions ???Recorded ???Last Taken ???Type NK 06/14/25 Unknown History Allergy/AdvReac Type Severity Reaction Status Date / Time No Known Allergies Allergy Verified 05/22/17 10:09 Social History Smoking Status: Never smoker ROS ROS Narrative Constitutional: Denies chronic fatigue and weakness. No fever. HEENT: Reports systems reviewed and no addt'l complaints, except as documented Respiratory/Chest: Recent dyspnea on exertion when climbing stairs. No acute shortness of breath or respiratory distress or wheezing. No smoking. No chronic lung disease CVS: No chest pain. Denies any chronic cardiac disease Gastrointestinal: Denies coffee ground emesis, hematemesis or vomiting Genitourinary: Denies burning urination or new urinary tract symptoms Musculoskeletal: Denies acute joint pain or limited range of motion. No acute injury Neurologic: Denies seizure-like symptoms. skin: No ulcer. No rash Endocrinology: Reports systems reviewed and no addt'l complaints, except as documented Hematologic/Lymphatic: Reports systems reviewed and no addt'l complaints, except as documented Rest 14 ROS are negative except as mentioned in HPI Vital Signs Vital Signs Vital Signs: 06/14/25 08:08 06/14/25 08:36 Temperature 97.2 F L Temperature Source Temporal Pulse Rate 77 Respiratory Rate 16 Respiratory Effort Normal Non-Labored Respiratory Pattern Normal Blood Pressure 154/81 H Blood Pressure Mean 105 Pulse Ox 100 Oxygen Delivery Method Room Air Weight Weight: 187 lb 6.4 oz Body Mass Index (BMI) 31.1 Physical Exam Narrative General: Alert, Oriented x3, Cooperative, . Pale looking HEENT: Atraumatic, PERRLA, EOMI, Normocephalic. Oral: No Gingival or Mucosal Lesions/ Ulcerations Neck: Supple, No JVD, Negative Carotid Bruits Chest wall/Lungs: Air entry diminished in bilateral lung bases. No crepitation/rhonchi Cardiovascular: Regular rate and rhythm, Normal S1,S2, No M/G/R Abdomen: Bowel Sounds Present, Soft, Non Tender, Non-Distended : No dysuria. No renal angle tenderness. No suprapubic tenderness. Extremities: No edema, Capillary Refill Less than 3 Seconds Skin: No rashes, No breakdown Musculoskeletal: No Tenderness to Palpation of Joints or Extremities Neurological: Cranial nerves II-XII grossly intact, DTR 2+/4. No acute focal neurological deficit. Psych/Mental Status: Normal Affect, Appropriate. Results Lab / Micro Data 06/14/25 08:20 06/14/25 08:20 Labs: Laboratory Results - last 24 hr 06/14/25 08:20: WBC 5.0, RBC 3.48 L, Hgb 6.6 L, Hct 24.8 L, MCV 71.3 L, MCH 19.0 L, MCHC 26.6 L, RDW Std Deviation 49.1 H, RDW Coeff of Evelia 19.1 H, Plt Count 282, MPV 10.3, Immature Gran % (Auto) 0.200, Neut % (Auto) 54.9, Lymph % (Auto) 28.3, [place] % (Auto) 11.4 H, Eos % (Auto) 3.6, Baso % (Auto) 1.6 H, Absolute Neuts (auto) 2.7, Absolute Lymphs (auto) 1.41, Nucleated RBC % 0, Sodium 144, Potassium 4.1, Chloride 109 H, Carbon Dioxide 22.9, Anion Gap 12, BUN 14, Creatinine 0.79, Estim Creat Clear Calc 75.48, Est GFR (MDRD) Non-Af 83, BUN/Creatinine Ratio 17.4, Glucose 96, Calcium 9.2, Blood Type A POSITIVE, Antibody Screen NEGATIVE, Crossmatch See Detail Assessment Plan Assessment/Plan (1) Anemia requiring transfusions: PLAN: Plan 64-year-old female being admitted for severe anemia from outside lab by PCP 1. Acute rapidly acute on chronic severe microcytic anemia: No previous lab to compare. Patient is being admitted in PCU. H H 6.6/24.8%. Platelet count normal. Units of PRBC-type and c (more content not included)... Normal [facility] HH, Hemoglobin AND Hematocri ton 06-14-2025 Hematocrit (Bld) [Volume fraction] 35.9 % Low 37-47 [facility] Comment on above: Order Comment: Comme nts: POST transfusion Performed By: #### L 100.0600 #### [facility] [address] [place], [address] Hemoglobin (Bld) [Mass/Vol] 10.1 g/dL Low 12.0-15.0 [facility] Comment on above: Order Comment: Comme nts: POST transfusion Performed By: #### L 100.0600 #### [facility] [address] [place], [address] Hematocrit Auto (Bld) [Volum e fraction]Ordered By: Dante Hannah on 06-14-2025 Hematocrit (Bld) [Volume fraction] 35.9 % Low 37-47 [facility] Hematocrit Auto (Bld) [Volum e fraction]Ordered By: Lenny Herrera on 06-14-2025 Hematocrit (Bld) [Volume fraction] 24.8 % Low 37-47 [facility] Hemoglobin measurementOrdere d By: Dante Hannah on 06-14-2025 Hemoglobin (Bld) [Mass/Vol] 10.1 g/dL Low 12.0-15.0 [facility] Hemoglobin measurementOrdere d By: Lenny Herrera on 06-14-2025 Hemoglobin (Bld) [Mass/Vol] 6.6 g/dL Low 12.0-15.0 [facility] Immature granulocytes/100 WB C Auto (Bld)Ordered By: Lenny Herrera on 06-14-2025 Immature granulocytes/100 WBC (Bld) 0.200 % 0.0-0.9 [facility] Comment on above: IG% - Immature Granu locytes (promyelocytes, myelocytes and metamyelocytes) > 1% indicates that a LEFT SHIFT is Present. International normalized rat io (INR) calculationOrdered By: Dante Hannah on 06-14-2025 INR Coag (Bld) [Relative time] 0.9 {INR} [facility] Iron measurement (mass/mass) Ordered By: Dante Hannah on 06-14-2025 Iron (Unsp spec) [Mass/Mass] 14 ug/dL Low 50-170 [facility] Iron+Iron Binding Capacityon 06-14-2025 TIBC 463 ug/dL High 250-450 [facility] Comment on above: Performed By: #### L 503.6550, L100.9950, L503.0106, L503.6030, L506.0200 #### [facility] [address] [place], [place], [id number] MCV (mean corpuscular volume ) determinationOrdered By: Lenny Herrera on 06-14-2025 MCV (RBC) [Entitic vol] 71.3 fL Low 81-99 [facility] Magnesiumon 06-14-2025 Magnesium [Mass/Vol] 2.1 mg/dL Normal 1.5-2.2 [facility] Comment on above: Order Comment: WG2 2 C Performed By: #### L 501.5200, L300.3900 ####[facility] [address] [facility] [address] [place], [place], [address] Magnesium measurement (mass/ volume)Ordered By: Dante Hannah on 06-14-2025 Magnesium (Unsp spec) [Mass/Vol] 2.1 mg/dL 1.5-2.2 [facility] Mean corpuscular hemoglobin (MCH) determinationOrdered By: Lenny Herrera on 06-14-2025 MCH (RBC) [Entitic mass] 19.0 pg Low 27.0-32.0 [facility] Mean corpuscular hemoglobin concentration (MCHC) determinationOrdered By: Lenny Herrera on 06-14-2025 MCHC (RBC) [Mass/Vol] 26.6 g/dL Low 32-36 [facility] Mean platelet volume determi nationOrdered By: Lenny Herrera on 06-14-2025 Platelet mean volume (Bld) [Entitic vol] 10.3 fL 6.2-12.0 [facility] Monocyte percentageOrdered B y: Lenny Herrera on 06-14-2025 Monocytes/100 WBC (Bld) 11.4 % High 0-10 [facility] Neutrophil percentageOrdered By: Lenny Herrera on 06-14-2025 Neutrophils/100 WBC (Bld) 54.9 % 47-70 [facility] No Panel InformationOrdered By: Dante Hannah on 06-14-2025 Unsaturated Iron Binding Capacity 449 ug/dL High 228-428 [facility] Nucleated red blood cell per centageOrdered By: Lenny Herrera on 09-10-2025 Nucleated RBC/100 WBC (Bld) [Ratio] 0 % 0-5 [facility] Platelet countOrdered By: Gokul Herrera on 06-14-2025 Platelets (Bld) [#/Vol] 282 10*3/uL 150-450 [facility] Potassium measurement (mass/ volume)Ordered By: Lenny Herrera on 06-14-2025 Potassium (Unsp spec) [Mass/Vol] 4.1 mmol/L 3.3-5.1 [facility] Prothrombin Time w/INRon INR Coag (PPP) [Relative time] 0.9 {INR} Normal [facility] Comment on above: Performed By: #### L 501.5200, L300.3900 ####[facility] [id number] [place], [address] PT Coag (PPP) [Time] 12.7 s Normal 11.7-14.9 [facility] Comment on above: Performed By: #### L 501.5200, L300.3900 ####[facility] [address] [place], [address] Prothrombin timeOrdered By: Dante Hannah on 06-14-2025 PT Coag (PPP) [Time] 12.7 s 11.7-14.9 [facility] RBC Auto (Bld) [#/Vol]Ordere d By: Lenny Herrera on 06-14-2025 RBC (Bld) [#/Vol] 3.48 10*6/uL Low 4.2-5.4 [facility] Retic Panelon 06-14-2025 IM RET FRACTION 23.50 High 3.00-15.90 [facility] Comment on above: Performed By: #### L 503.6550, L100.9950, L503.0106, L503.6030, L506.0200 #### [facility] [address] [place], [address] RET-HE 16.3 pg Low 30-35 [facility] Comment on above: Performed By: #### L 503.6550, L100.9950, L503.0106, L503.6030, L506.0200 #### [facility] [address] [place], [place], [address] Retic Count 1.94 High 0.5-1.5 [facility] Comment on above: Performed By: #### L 503.6550, L100.9950, L503.0106, L503.6030, L506.0200 #### [facility] [address] [place], [address] Reticulocyte hemoglobin equi valent (RET-He) measurementOrdered By: Dante Hannah on 06-14-2025 Hemoglobin (Reticulocytes) [Entitic mass] 16.3 pg Low 30-35 [facility] Reticulocytes Auto (Bld) [#/ Vol]Ordered By: Dante Hannah on 06-14-2025 Reticulocytes/100 RBC (Bld) 1.94 % High 0.5-1.5 [facility] Serum creatinine measurement (mass/volume)Ordered By: Lenny Herrera on 06-14-2025 Creatinine [Mass/Vol] 0.79 mg/dL 0.70-1.20 [facility] Serum glucose measurement (m ass/volume)Ordered By: Lenny Herrera on 06-14-2025 Glucose [Mass/Vol] 96 mg/dL 70-99 [facility] Serum or plasma calcium sima urement (mass/volume)Ordered By: Lenny Herrera on 06-14-2025 Calcium [Mass/Vol] 9.2 mg/dL 7.6-11.0 [facility] Serum or plasma ferritin meagan surement (mass/volume)Ordered By: Dante Hannah on 06-14-2025 Ferritin [Mass/Vol] 6 ng/mL Low 22-378 [facility] Serum or plasma iron saturat ion measurement (mass fraction)Ordered By: Dante Hannah on 06-14-2025 Iron saturation [Mass fraction] 3.0 % Low 13-59 [facility] Serum or plasma urea nitroge n measurement (mass/volume)Ordered By: Lenny Herrera on 06-14-2025 Urea nitrogen [Mass/Vol] 14 mg/dL 4-19 [facility] Sodium levelOrdered By: Lenny Herrera on 06-14-2025 Sodium [Moles/Vol] 144 mmol/L 133-145 [facility] Type AND Screenon 06-14-2025 Ab SCREEN GEL Negative Normal [facility] Comment on above: Order Comment: CMV N EG? NNumber of units to transfuse: 2Is this product for anemia associated withhemoglobinopathy? NIs there a >20% drop in pt's BP? NIs the pt's CVP (central venous pressure) <3 cm/H2O? NIs the EBL >/= 1000ml in adults or >/= 12ml/kg in children?YIs pt's Hgb is 10mmHg)? NIs there an orthostatic change in pt's BP(SBP drop>10mmHg)? NIs this for PREOP anemia correction prior to anesthesia? NIs pt's HR > 100 bpm? NReason for Ordering Blood: AcuteIs there symptomatic anemia? Jorge the blood/blood products to be transfused? YIs the patient having/had surgery? NNHNYA Performed By: #### L 100.0100, BRC, BTS, L500.2500 ####[facility] [address] [place], [address] Vitamin B12on 06-14-2025 Cobalamin (Vitamin B12) [Mass/Vol] 172 pg/mL Low 180-914 [facility] Comment on above: Performed By: #### L 503.6550, L100.9950, L503.0106, L503.6030, L506.0200 #### [facility] [address] [place], [address] Vitamin B12 ser/plasOrdered By: Dante Hannah on 06-14-2025 Cobalamin (Vitamin B12) [Mass/Vol] 172 pg/mL Low 180-914 [facility] White blood cell (WBC) count Ordered By: Lenny Herrera on 06-14-2025 WBC (Bld) [#/Vol] 5.0 10*3/uL 4.4-11.0 [facility] L3410.9992on 06-09-2025 [facility] Misc. COMMENT Normal . [facility] Comment on above: Order Comment: [id number] 8AMINO ACID PROFILE QN PLASMA Result Comment: Test Ordered: [id number] Amino Acid Profile, Qn, Plasma Test(s) 700840-Bdhqzwd; 913501-Qoxhotlbk; 580004- Hydroxyproline; 378585-Rflonqzvc; 870278-Rusehn; 801561- Asparagine; 411518-Rtjlakicz; 901720-Fzroglsxw; 614612- Sarcosine; 262613-Lcmkg-lqjvqwanhrxt; 632727-Zscubpr; 195372-Lrzsjys; 086754-Vkdzzus; 913530-Zcwkxztkdt; 869790- Alpha-aminobutyrate; 106342-Vosygx; 221012-Lrooalg; 407611- Methionine; 720054-Bjporlnrrkjuwy; 385173-Soumimzmfgvyf; 495594-Ejcnuetbkhkdty; 178280-Egvxcrkuxy; 599043-Klzwfty; 922148-Hepnwral; 678133-Pqsyggfdlmzus; 861900- Argininosuccinate; 683659-Vjfb-tofeniz; 779081- Beta-aminoisobutyrate; 762003-Cwzousvvnzm; 595442- Gamma-aminobutyrate; 635983-Jafrbuxxjc; 961525- Hydroxylysine; 848410-Iojxgsxxt; 877406-Etikox; 747394- Histidine; 228097-Vaqppsyd was developed and its performance characteristics determined by [employer]. It has not been cleared or approved by the Food and Drug Administration. Taurine 47.9 umol/L Reference Range: 29.2-132.3 Aspartate 1.7 umol/L Reference Range: 0.0-7.4 Hydroxyproline 15.1 umol/L Reference Range: 4.7-35.2 Threonine 213.8 [H ] umol/L BN Reference Range: 67.8-211.6 Serine 101.7 umol/L BN Reference Range: 48.7-145.2 Asparagine 50.9 umol/L BN Reference Range: 29.5-84.5 Glutamate 32.6 umol/L BN Reference Range: 18.1-155.9 Glutamine 491.4 umol/L Reference Range: 372.8-701.4 Sarcosine 0.6 umol/L Reference Range: 0.0-4.0 Alpha-aminoadipate <0.5 umol/L Reference Range: 0.0-1.9 Proline 160.3 umol/L Reference Range: 84.8-352.5 Glycine 443.3 [H ] umol/L Reference Range: 144.0-411.0 Alanine 360.8 umol/L Reference Range: 209.2-515.5 Citrulline 34.6 umol/L Reference Range: 15.6-46.9 Alpha-aminobutyrate 11.5 umol/L Reference Range: 5.4-34.5 Valine 119.2 [L ] umol/L Reference Range: 133.0-317.1 Cystine 36.3 umol/L Reference Range: 15.8-47.3 Methionine 21.1 umol/L Reference Range: 14.7-35.2 Homocitrulline 0.5 umol/L Reference Range: 0.0-1.7 Cystathionine <0.5 umol/L Reference Range: 0.0-0.7 Alloisoleucine 1.8 umol/L Reference Range: 0.0-3.2 Isoleucine 39.2 umol/L Reference Range: 32.8-88.3 Leucine 59.1 [L ] umol/L Reference Range: 66.7-165.7 Tyrosine 45.4 umol/L Reference Range: 27.8-83.3 Phenylalanine 44.3 umol/L Reference Range: 35.8-76.9 Argininosuccinate <0.1 umol/L Reference Range: 0.0-3.0 Beta-alanine 1.8 umol/L Reference Range: 1.1-9.0 Beta-aminoisobutyrate 2.4 umol/L Reference Range: 0.0-4.3 Homocystine <0.3 umol/L Reference Range: 0.0-0.2 Gamma-aminobutyrate <0.5 umol/L Reference Range: 0.0-0.6 Tryptophan 31.1 umol/L Reference Range: 23.5-93.0 Hydroxylysine 0.2 umol/L Reference Range: 0.1-0.8 Ornithine 65.0 umol/L BN Reference Range: 30.1-101.3 Lysine 133.6 umol/L Reference Range: 94.0-278.0 Histidine 44.8 [L ] umol/L Reference Range: 47.2-98.5 Arginine 102.7 umol/L Reference Range: 36.3-119.2 Interpretation Comment Reference Range: . Plasma amino acid analysis reveals variations from the normal reference range for several amino acids. The pattern is not suggestive of a specific aminoacidopathy. This pattern may be due to differences in normal metabolism, patient diet, or treatment. Director Review Comment Reference Range: . Technical Component analysis performed at [facility] Professional Component interpretation performed by: Liliya Carroll, PhD, [facility] Director, Biochemical Genetics [facility] [address] [employer] [facility] [address] To discuss these results or other testing for inborn errors of metabolism, please contact our Biochemical Geneticists at [phone] [facility] [id number] [facility] [employer], [place], [place]. Methodology Comment Reference Range: . Amino acid concentrations were obtained by LC-MS/MS analysis. Performed at: [address] [id number] [employer] Maker: Jihan Giles MD, Phone: [phone] Performed at: [facility] [address] [place], [place] [id number] [employer] Maker: Gaby Miranda [facility], Phone: [phone] Performed at: [address] [id number] [employer] Maker: Daniel Sanabria PhD, Phone: [phone] Performed By: #### L 3410.9992, L506.0400, L503.6030, L801.2600, L100.0100, L503.2550, L501.2520, L501.65656, L509.3001, L3300.1750, L3300.1500 ####[facility] [address] [place], [place], [address] DHEA Sulfateon 06-04-2025 DHEA SULFATE 21.7 ug/dL Normal 20.4-186.6 [facility] Comment on above: Order Comment: N Result Comment: Perf ormed at: - [facility] [address], [place] [id number] [employer] Maker: Daniel Sanabria PhD, Phone: [phone] Performed By: #### L 3410.9992, L506.0400, L503.6030, L801.2600, L100.0100, L503.6550, L501.9520, L501.11345, L509.3001, L3300.1750, L3300.1500 ####[facility] [address] [place], [address] PROGESTERONE 4317on 06-04-20 PROGESTERONE <0.1 Normal . [facility] Comment on above: Order Comment: N Result Comment: Foll icular phase 0.1 - 0.9 Luteal phase 1.8 - 23.9 Ovulation phase 0.1 - 12.0 First trimester 11.0 - 44.3 Second trimester 25.4 - 83.3 Third trimester 58.7 - 214.0 Postmenopausal 0.0 - 0.1 Performed at: - [facility] [address], [place] [id number] [employer] Maker: Daniel Sanabria PhD, Phone: [phone] Performed By: #### L 3410.9992, L506.0400, L503.6030, L801.2600, L100.0100, L503.6550, L501.9520, L501.34007, L509.3001, L3300.1750, L3300.1500 ####[facility] [address] [place], [address] Absolute lymphocyte countOrd ered By: Yessi Boston on 06-02-2025 Lymphocytes Auto (Unsp spec) [#/Vol] 1.21 10*3/uL 0.83-4.51 [facility] Absolute neutrophil countOrd ered By: Yessi Boston on 06-02-2025 Neutrophils (Bld) [#/Vol] 3.0 10*3/uL 2.0-7.7 [facility] Automated lymphocyte count a s percentage of total leukocytesOrdered By: Yessi Boston on 06-02-2025 Lymphocytes/100 WBC Auto (Unsp spec) 24.6 % 19-41 [facility] Basophil percentageOrdered B y: Yessi Boston on 06-02-2025 Basophils/100 WBC (Bld) 0.8 % 0-1 [facility] CBC W/Diff, Automatedon 05-06 Absolute Lymph 1.21 X10 3/uL Normal 0.83-4.51 [facility] Comment on above: Performed By: #### L 3410.9992, L506.0400, L503.6030, L801.2600, L100.0100, L503.6550, L501.9520, L501.75975, L509.3001, L3300.1750, L3300.1500 ####[facility] [address] [place], [place], [phone]) Absolute Neut 3.0 X10 3/uL Normal 2.0-7.7 [facility] Comment on above: Performed By: #### L 3410.9992, L506.0400, L503.6030, L801.2600, L100.0100, L503.6550, L501.9520, L501.48959, L509.3001, L3300.1750, L3300.1500 ####[facility] [address] [place], [place], [phone] Basophils/100 WBC (Bld) 0.8 % Normal 0-1 [facility] Comment on above: Performed By: #### L 3410.9992, L506.0400, L503.6030, L801.2600, L100.0100, L503.6550, L501.9520, L501.01939, L509.3001, L3300.1750, L3300.1500 ####[facility] [address] [place], [phone] Eosinophils/100 WBC (Bld) 3.7 % Normal 0-5 [facility] Comment on above: Performed By: #### L 3410.9992, L506.0400, L503.6030, L801.2600, L100.0100, L503.6550, L501.9520, L501.88682, L509.3001, L3300.1750, L3300.1500 ####[facility] [address] [place], [place], [phone] Erythrocyte distribution width (RBC) [Ratio] 19.3 % High 11.6-14.6 [facility] Comment on above: Performed By: #### L 3410.9992, L506.0400, L503.6030, L801.2600, L100.0100, L503.6550, L501.9520, L501.20447, L509.3001, L3300.1750, L3300.1500 ####[facility] [address] [place], [place], [phone] Hematocrit (Bld) [Volume fraction] 24.5 % Low 37-47 [facility] Comment on above: Performed By: #### L 3410.9992, L506.0400, L503.6030, L801.2600, L100.0100, L503.6550, L501.9520, L501.53017, L509.3001, L3300.1750, L3300.1500 ####[facility] [address] [place], [place], [phone] Hemoglobin (Bld) [Mass/Vol] 6.6 g/dL Low 12.0-15.0 [facility] Comment on above: Performed By: #### L 3410.9992, L506.0400, L503.6030, L801.2600, L100.0100, L503.6550, L501.9520, L501.63309, L509.3001, L3300.1750, L3300.1500 ####[facility] [address] [facility] [place], [address] IG% 0.400 Normal 0.0-0.9 [facility] Comment on above: Result Comment: IG% - Immature Granulocytes (promyelocytes, myelocytes and metamyelocytes) > 1% indicates that a LEFT SHIFT is Present. Performed By: #### L 3410.9992, L506.0400, L503.6030, L801.2600, L100.0100, L503.6550, L501.9520, L501.95214, L509.3001, L3300.1750, L3300.1500 ####[facility] [address] [place], [address] Lymphocytes/100 WBC (Bld) 24.6 % Normal 19-41 [facility] Comment on above: Performed By: #### L 3410.9992, L506.0400, L503.6030, L801.2600, L100.0100, L503.6550, L501.9520, L501.85468, L509.3001, L3300.1750, L3300.1500 ####[facility] [address] [place], [address] MCH (RBC) [Entitic mass] 19.4 pg Low 27.0-32.0 [facility] Comment on above: Performed By: #### L 3410.9992, L506.0400, L503.6030, L801.2600, L100.0100, L503.6550, L501.9520, L501.43160, L509.3001, L3300.1750, L3300.1500 ####[facility] [address] [facility] [place], [address] MCHC (RBC) [Mass/Vol] 26.9 g/dL Low 32-36 [facility] Comment on above: Performed By: #### L 3410.9992, L506.0400, L503.6030, L801.2600, L100.0100, L503.6550, L501.9520, L501.89087, L509.3001, L3300.1750, L3300.1500 ####[facility] [address] [place], [address] MCV (RBC) [Entitic vol] 72.1 fL Low 81-99 [facility] Comment on above: Performed By: #### L 3410.9992, L506.0400, L503.6030, L801.2600, L100.0100, L503.6550, L501.9520, L501.45944, L509.3001, L3300.1750, L3300.1500 ####[facility] [address] [facility] [place], [address] Monocytes/100 WBC (Bld) 9.8 % Normal 0-10 [facility] Comment on above: Performed By: #### L 3410.9992, L506.0400, L503.6030, L801.2600, L100.0100, L503.6550, L501.9520, L501.78187, L509.3001, L3300.1750, L3300.1500 ####[facility] [address] [facility] [place], [address] Neutrophils/100 WBC (Bld) 60.7 % Normal 47-70 [facility] Comment on above: Performed By: #### L 3410.9992, L506.0400, L503.6030, L801.2600, L100.0100, L503.6550, L501.9520, L501.15704, L509.3001, L3300.1750, L3300.1500 ####[facility] [address] [facility] [place], [address] Nucleated RBC (Bld) [#/Vol] 0 10*3/uL Normal 0-5 [facility] Comment on above: Performed By: #### L 3410.9992, L506.0400, L503.6030, L801.2600, L100.0100, L503.6550, L501.9520, L501.57023, L509.3001, L3300.1750, L3300.1500 ####[facility] [address] [place], [address] Platelet mean volume (Bld) [Entitic vol] 10.6 fL Normal 6.2-12.0 [facility] Comment on above: Performed By: #### L 3410.9992, L506.0400, L503.6030, L801.2600, L100.0100, L503.6550, L501.9520, L501.27362, L509.3001, L3300.1750, L3300.1500 ####[facility] [address] [place], [address] Platelets (Bld) [#/Vol] 344 10*3/uL Normal 150-450 [facility] Comment on above: Performed By: #### L 3410.9992, L506.0400, L503.6030, L801.2600, L100.0100, L503.6550, L501.9520, L501.32448, L509.3001, L3300.1750, L3300.1500 ####[facility] [address] [place], [address] RBC (Bld) [#/Vol] 3.40 10*6/uL Low 4.2-5.4 [facility] Comment on above: Performed By: #### L 3410.9992, L506.0400, L503.6030, L801.2600, L100.0100, L503.6550, L501.9520, L501.16014, L509.3001, L3300.1750, L3300.1500 ####[facility] [address] [place], [address] RDW SD 50.3 fl High 35.1-43.9 [facility] Comment on above: Performed By: #### L 3410.9992, L506.0400, L503.6030, L801.2600, L100.0100, L503.6550, L501.9520, L501.41420, L509.3001, L3300.1750, L3300.1500 ####[facility] [address] [place], [place], [phone] WBC (Bld) [#/Vol] 4.9 10*3/uL Normal 4.4-11.0 [facility] Comment on above: Performed By: #### L 3410.9992, L506.0400, L503.6030, L801.2600, L100.0100, L503.6550, L501.9520, L501.32986, L509.3001, L3300.1750, L3300.1500 ####[facility] [address] [place], [place], [phone] Eosinophil percentageOrdered By: Yessi Boston on 06-02-2025 Eosinophils/100 WBC (Bld) 3.7 % 0-5 [facility] Erythrocyte distribution wid th ratioOrdered By: Yessi Boston on 06-02-2025 Erythrocyte distribution width (RBC) [Ratio] 19.3 % High 11.6-14.6 [facility] Erythrocyte distribution wid th standard deviationOrdered By: Yessi Boston on 06-02-2025 Erythrocyte distribution width (RBC) [Ratio] 50.3 fl High 35.1-43.9 [facility] Estradiolon 06-02-2025 ESTRADIOL < 5.0 Normal [facility] Comment on above: Result Comment: FEMA LES 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 There is evidence that it may occur up to 1 year earlier in obese girls and in girls. Progression through Gavin stages is variable. Gavin stage V (adult) should be reached by age 18. Performed By: #### L 3410.9992, L506.0400, L503.6030, L801.2600, L100.0100, L503.6550, L501.9520, L501.37769, L509.3001, L3300.1750, L3300.1500 ####[facility] [address] [place], [place], [phone] Ferritinon 06-02-2025 Ferritin [Mass/Vol] 5 ng/mL Low 22-378 [facility] Comment on above: Performed By: #### L 3410.9992, L506.0400, L503.6030, L801.2600, L100.0100, L503.6550, L501.9520, L501.71213, L509.3001, L3300.1750, L3300.1500 ####[facility] [address] [place], [place], [phone] Free T3on 06-02-2025 Free T3 [Mass/Vol] 3.3 pg/mL Normal 2.18-3.98 [facility] Comment on above: Order Comment: N Performed By: #### L 3410.9992, L506.0400, L503.6030, L801.2600, L100.0100, L503.6550, L501.9520, L501.40088, L509.3001, L3300.1750, L3300.1500 ####[facility] [address] [place], [place], [phone] Free F1Fyklfqy By: Yessi casey on 06-02-2025 Free T3 [Mass/Vol] 3.3 pg/mL 2.18-3.98 [facility] Hematocrit Auto (Bld) [Volum e fraction]Ordered By: Yessi Boston on 06-02-2025 Hematocrit (Bld) [Volume fraction] 24.5 % Low 37-47 [facility] Hemoglobin measurementOrdere d By: Yessi Boston on 06-02-2025 Hemoglobin (Bld) [Mass/Vol] 6.6 g/dL Low 12.0-15.0 [facility] Immature granulocytes/100 WB C Auto (Bld)Ordered By: Yessi Boston on 06-02-2025 Immature granulocytes/100 WBC (Bld) 0.400 % 0.0-0.9 [facility] Comment on above: IG% - Immature Granu locytes (promyelocytes, myelocytes and metamyelocytes) > 1% indicates that a LEFT SHIFT is Present. Iron measurement (mass/mass) Ordered By: Yessi Boston on 06-02-2025 Iron (Unsp spec) [Mass/Mass] 12 ug/dL Low 50-170 [facility] Iron+Iron Binding Capacityon 06-02-2025 TIBC 465 ug/dL High 250-450 [facility] Comment on above: Performed By: #### L 3410.9992, L506.0400, L503.6030, L801.2600, L100.0100, L503.6550, L501.9520, L501.54765, L509.3001, L3300.1750, L3300.1500 ####[facility] [address] [place], [address] L509.3001on 06-02-2025 Testosterone [Mass/Vol] ng/dL Low 5-32 [facility] Comment on above: Performed By: #### L 3410.9992, L506.0400, L503.6030, L801.2600, L100.0100, L503.6550, L501.9520, L501.24796, L509.3001, L3300.1750, L3300.1500 ####[facility] [address] [place], [address] Laboratory - Chemistry and C hemistry - challengeOrdered By: Yessi Boston on 06-02-2025 Testosterone [Mass/Vol] ng/dL Low 5-32 [facility] MCV (mean corpuscular volume ) determinationOrdered By: Yessi Boston on 06-02-2025 MCV (RBC) [Entitic vol] 72.1 fL Low 81-99 [facility] Mean corpuscular hemoglobin (MCH) determinationOrdered By: Yessi Boston on 06-02-2025 MCH (RBC) [Entitic mass] 19.4 pg Low 27.0-32.0 [facility] Mean corpuscular hemoglobin concentration (MCHC) determinationOrdered By: Yessi Boston on 06-02-2025 MCHC (RBC) [Mass/Vol] 26.9 g/dL Low 32-36 [facility] Mean platelet volume determi nationOrdered By: Yessi Boston on 06-02-2025 Platelet mean volume (Bld) [Entitic vol] 10.6 fL 6.2-12.0 [facility] Monocyte percentageOrdered B y: Yessi Boston on 06-02-2025 Monocytes/100 WBC (Bld) 9.8 % 0-10 [facility] Neutrophil percentageOrdered By: Yessi Boston on 06-02-2025 Neutrophils/100 WBC (Bld) 60.7 % 47-70 [facility] No Panel InformationOrdered By: Yessi Boston on 06-02-2025 Unsaturated Iron Binding Capacity 453 ug/dL High 228-428 [facility] Nucleated red blood cell per centageOrdered By: Yessi Boston on 06-02-2025 Nucleated RBC/100 WBC (Bld) [Ratio] 0 % 0-5 [facility] Platelet countOrdered By: Jose Francisco Boston on 06-02-2025 Platelets (Bld) [#/Vol] 344 10*3/uL 150-450 [facility] RBC Auto (Bld) [#/Vol]Ordere d By: Yessi Boston on 06-02-2025 RBC (Bld) [#/Vol] 3.40 10*6/uL Low 4.2-5.4 [facility] Serum or plasma estradiol me asurement after follitropin dose (mass/volume)Ordered By: Yessi Boston on 06-02-2025 E2 post dose follitropin [Mass/Vol] < 5.0 pg/mL [facility] Comment on above: FEMALES ADULT FEMALE : Premenopausal: 15-350 pg/mL(E2 levels vary widely through the menstrual cycle) Postmenopausal: <10 pg/mL GAVIN STAGES MEAN AGE REFERENCE RANGES Stage I(>14 days and prepubertal) 7.1 years Undetectable-20 pg/mLL Stage II 10.5 years Undetectable-24 pg/mL Stage III 11.6 years Undetectable-60 pg/mL Stage IV 12.3 years 15-85 pg/mL Stage V 14.5 years 15-350 pg/mL Puberty onset (transition from Gavin stage I to Gavin stage II) occurs for girls at a median age of 10.5 (/- 2) years. There is evidence that it may occur up to 1 year earlier in obese girls and in girls.Progression through Gavin stages is variable. Gavin stage V (adult) should be reached by age 18. Serum or plasma ferritin meagan surement (mass/volume)Ordered By: Yessi Boston on 06-02-2025 Ferritin [Mass/Vol] 5 ng/mL Low 22-378 [facility] Serum or plasma iron saturat ion measurement (mass fraction)Ordered By: Yessi Boston on 06-02-2025 Iron saturation [Mass fraction] 2.0 % Low 13-59 [facility] Comment on above: Previous reported re sult: 2.0 %Edited by: MEÑO on 06/02/25:1644 T4 Free Directon 06-02-2025 T4 FREE DIRECT 1.30 ng/dL Normal 0.76-1.46 [facility] Comment on above: Order Comment: N Performed By: #### L 3410.9992, L506.0400, L503.6030, L801.2600, L100.0100, L503.6550, L501.9520, L501.04625, L509.3001, L3300.1750, L3300.1500 ####[facility] [address] [facility]. [place], [place], [phone] T4 freeOrdered By: Yessi casey on 06-02-2025 Free T4 [Mass/Vol] 1.30 ng/dL 0.76-1.46 [facility] TSH DL <= 0.005 mIU/L QnOrde red By: Yessi Boston on 06-02-2025 TSH Qn 1.380 uIU/mL 0.300-4.200 [facility] Thyroid Stim Hormone (TSH)on 06-02-2025 TSH 1.380 uIU/mL Normal 0.300-4.200 [facility] Comment on above: Performed By: #### L 3410.9992, L506.0400, L503.6030, L801.2600, L100.0100, L503.6550, L501.9520, L501.11572, L509.3001, L3300.1750, L3300.1500 ####[facility] [address] [facility]. [place], [place], [phone] White blood cell (WBC) count Ordered By: Yessi Boston on 06-02-2025 WBC (Bld) [#/Vol] 4.9 10*3/uL 4.4-11.0 [facility] CNOVon 05-22-2017 CNOV Office Visit (UCWSTR) MUNA IRBY ([id number]) 1960 FDate Time Provider Department05/22/17 9:15 AM MIGNON VELÁZQUEZ) [facility] During your visit today, we recorded the following information about you: Temperature Pulse Respiration Blood pressure 98.1 degrees 62/minute 16/minute 130/80 Weight 85.2 kgMignon Velázquez CNP 05/22/2017 9:57 AM SignedHPI Patient presents for evaluation of thumb swelling and pain, she laceratedher thumb with a knife while cutting vegetables one week ago, lacerationextended beneath nail. She treated it at home with charcoal poultice and lastnight the thumb started to turn purple and had increased pain and swelling.Due to the large amount of swelling and pain and possible ischemia of tissuesshe was referred to the emergency room for evaluation and treatment. Patientwas agreeable to this plan.ROSPhysical ExamReferring Provider: SELF [200]Allergies As of Date: 05/22/2017(No Known Allergies)Date Reviewed: 05/22/2017Reviewed by: Nani Vogt Ma - Fully AssessedReason for Visit: Finger Pain [1583] Cmt: x6 daysPrimary Visit Diagnosis:APPOINTMENT CANCELLEDProblem List As Of Date: 05/22/2017(None)[facility] Number: [id number] Status:Closed by MIGNON VELÁZQUEZ on 05/22/17 Normal [facility] PROGRESSon 05-22-2017 PROGRESS HNO ID: [id number]: Mignon ([facility]) Hyacinth: (none)Author Type: Nurse PractitionerType: Progress NotesFiled: 05/22/2017 9:57 AMNote Text:HPI Patient presents for evaluation of thumb swelling and pain, shelacerated her thumb with a knife while cutting vegetables one week ago,laceration extended beneath nail. She treated it at home with charcoalpoultice and last night the thumb started to turn purple and had increasedpain and swelling. Due to the large amount of swelling and pain andpossible ischemia of tissues she was referred to the emergency room forevaluation and treatment. Patient was agreeable to this plan.ROSPhysical Exam Normal [facility] Vital Signs Date Time Vital Sign Value Performing Clinician Mala harry 07-10-2025 08:34-0400 Body height 162.[address] Ata Martinez DO Work Phone: [facility] 07-10-2025 08:34-0400 Body mass index (BMI) [Ratio] 32.1 kg/m2 Dr. Ata Martinez DO Work Phone: 2(722)776-787334 [place] [address] 07-10-2025 08:34-0400 Body temperature 97.2 [degF] Dr. Ata Martinez DO Work Phone: 0(330)510-612734 [place] [address] 07-10-2025 08:34-0400 Body weight 84.[address] Ata Martinez DO Work Phone: 8(820)554-332634 [place] [address] 07-10-2025 08:34-0400 Diastolic blood pressure 97 mm[Hg] Dr. Ata Martinez DO Work Phone: 8(876)599-040234 [place] [address] 07-10-2025 08:34-0400 Heart rate 66 /min Dr. Ata Martinez DO Work Phone: 6(583)117-606534 [place] [address] 07-10-2025 08:34-0400 Respiratory rate 17 /min Dr. Ata Martinez DO Work Phone: 0(300)519-323134 [place] [address] 07-10-2025 08:34-0400 SaO2% (BldA) [Mass fraction] 98 % Dr. Ata Martinez DO Work Phone: 6(583)896-187834 [place] [address] 07-10-2025 08:34-0400 Systolic blood pressure 145 mm[Hg] Dr. Ata Martinez DO Work Phone: 4(965)476-477434 [place] [address] 06-14-2025 18:05-0400 Body temperature 98.2 [degF] Dr. Ata Martinez DO Work Phone: 1(670)105-273534 [place] [address] 06-14-2025 18:05-0400 Diastolic blood pressure 96 mm[Hg] Dr. Ata Martinez DO Work Phone: 5(693)299-440934 [place] [address] 06-14-2025 18:05-0400 Heart rate 81 /min Dr. Ata Martinez DO Work Phone: 7(096)153-860534 [place] [address] 06-14-2025 18:05-0400 Respiratory rate 16 /min Dr. Ata Martniez DO Work Phone: 9(385)247-154634 [place] [address] 06-14-2025 18:05-0400 SaO2% (BldA) [Mass fraction] 98 % Dr. Ata Martinez DO Work Phone: 4(375)431-935001 [address] 06-14-2025 18:05-0400 Systolic blood pressure 129 mm[Hg] Dr. Ata Martinez DO Work Phone: 8(218)218-524201 [address] 06-14-2025 15:53-0400 Body mass index (BMI) [Ratio] 32.1 kg/m2 Dr. Ata Martinez DO Work Phone: 7(689)431-907401 [address] 06-14-2025 15:53-0400 Body weight 85.[address] Ata Martinez DO Work Phone: 2(596)352-695101 [address] 06-14-2025 11:49-0400 Body height 162.[address] Ata Martinez DO Work Phone: 4(917)506-355734 [place] [address] 06-14-2025 10:24-0400 Body temperature 97.9 [degF] Dr. Ata Martinez DO Work Phone: 2(080)615-917334 [place] [address] 06-14-2025 10:24-0400 Diastolic blood pressure 79 mm[Hg] Dr. Ata Martinez DO Work Phone: 0(507)544-811401 [address] 06-14-2025 10:24-0400 Heart rate 70 /min Dr. Ata Martinez DO Work Phone: 1(959)759-955734 [place] [address] 06-14-2025 10:24-0400 Respiratory rate 20 /min Dr. Ata Martinez DO Work Phone: 9(005)589-822401 [address] 06-14-2025 10:24-0400 SaO2% (BldA) [Mass fraction] 99 % Dr. Ata Martinez DO Work Phone: 5(523)668-737901 [address] 06-14-2025 10:24-0400 Systolic blood pressure 140 mm[Hg] Dr. Ata Martinez DO Work Phone: 5(946)376-085401 [address] 06-14-2025 08:08-0400 Body height 165.[address] Ata Martinez DO Work Phone: 8(876)906-705901 [address] 06-14-2025 08:08-0400 Body mass index (BMI) [Ratio] 31.1 kg/m2 Dr. Ata Martinez DO Work Phone: [facility] 06-14-2025 08:08-0400 Body weight [address] Ata Martinez DO Work Phone: [facility] Encounters Encounter Date Encounter Type Care Provider Facility Start: 08-01-2025 End: 08-01-2025 ambulatory Jayro Wilson Facility:[facility] Start: 07-10-2025 End: 07-10-[address] Jayro Wilson MD -[facility] Work Phone: Start: 07-10-2025 End: 07-10-[address] Ata Martinez DO Work Phone: -[facility] Start: 06-20-2025 ambulatory Yessi Boston NP Fa cility:[facility] Start: 06-14-2025 Non-patient / Non-visit Dr. Dante Hannah MD -[facility] Work Phone: Start: 06-14-2025 ambulatory Dante Hannah Facility: [facility] [place] Start: 06-14-2025 End: 06-14-2025 Evaluation and management of inpatient Dr. Dante Hannah MD -Progressive Care Unit Work Phone: Start: 06-02-2025 Registered Referred Yessi PEREZC -Laboratory Specimen Work Phone: Start: 06-02-2025 ambulatory Ata Martinez Facility:[facility] Start: 05-22-2017 End: 05-22-2017 Ambulatory LOTTIE (RITA) RAISA [facility] Procedures Date Procedure Procedure Detail Performing Clinician Start: 06-14-[address] Ata Martinez DO Work Phone: Start: 06-14-[address] Ata Martinez DO Work Phone: Start: 06-14-2025 Total iron binding capacity measurement Dr. Ata Martinez DO Work Phone: Start: 06-02-[address] Ata Martinez DO Work Phone: Comment on above: Performed at: [place] [id number] Director: Daniel Sanabria PhD, Phone: [phone] Start: 06-02-[address] Ata Martinez DO Work Phone: Comment on above: Test Ordered: [id number] Amino Acid Profile, Qn, PlasmaTest(s) 538790-Hiyxhcc; 374489-Dlibdlqqr; 563300-Gnuqyukjprvhus; 129766-Svzqoulme; 326352-Xniblf; 320442-Ouomnnplsb; 315034-Vpgmxavhl; 384360-Acrjjrfxv; 059819-Tfbbeaedq; 379523-Dvmtw-iqnrnfcwrqlw; 027969-Faxsuqk;292925-Errrhqc; 343402-Rbgauzi; 193402-Ahtfwsaqbi; 399674-Yqjlp-ulzbvwsixffia; 321237-Xxtssd; 461304-Idwldoi; 973536-Yieuxzjorc; 711547-Yjyxiyikjyrcxb; 143091-Pvpmnvfxwdvbq;371126-Tcbfikyaqbrpmp; 171942-Xhzgjbmswb; 515485-Mozxwac;689741-Ipzyhsjh; 282848-Hjehaqdszxhcp; 348092-Bcixhgwtkcvsiduec; 495619-Jjdd-qgajkyv; 211643-Omug-fofvozheczmtghuy; 189823-Hvjiirsjdcs; 369360-Cyfca-rtslhhvzxmvzp; 114341-Tjwxevpolg; 074151-Swjacibffawna; 947724-Xhnywojnn; 386461-Nybgfb; 741979-Sqiwqyeqx; 304358-Wpxeopwpbgc developed and its performance characteristicsdetermined by [employer]. It has not been cleared or approvedby the Food and Drug Administration.Taurine 47.9 umol/L BN Reference Range: 29.2-132.3Aspartate 1.7 umol/L BN Reference Range: 0.0-7.4Hydroxyproline 15.1 umol/L BN Reference Range: 4.7-35.2Threonine 213.8 [H ] umol/L BN Reference Range: 67.8-211.6Serine 101.7 umol/L BN Reference Range: 48.7-145.2Asparagine 50.9 umol/L BN Reference Range: 29.5-84.5Glutamate 32.6 umol/L Reference Range: 18.1-155.9Glutamine 491.4 umol/L Reference Range: 372.8-701.4Sarcosine 0.6 umol/L Reference Range: 0.0-4.0Alpha-aminoadipate <0.5 umol/L Reference Range: 0.0-1.9Proline 160.3 umol/L Reference Range: 84.8-352.5Glycine 443.3 [H ] umol/L Reference Range: 144.0-411.0Alanine 360.8 umol/L Reference Range: 209.2-515.5Citrulline 34.6 umol/L Reference Range: 15.6-46.9Alpha-aminobutyrate 11.5 umol/L Reference Range: 5.4-34.5Valine 119.2 [L ] umol/L Reference Range: 133.0-317.1Cystine 36.3 umol/L Reference Range: 15.8-47.3Methionine 21.1 umol/L Reference Range: 14.7-35.2Homocitrulline 0.5 umol/L Reference Range: 0.0-1.7Cystathionine <0.5 umol/L Reference Range: 0.0-0.7Alloisoleucine 1.8 umol/L Reference Range: 0.0-3.2Isoleucine 39.2 umol/L Reference Range: 32.8-88.3Leucine 59.1 [L ] umol/L Reference Range: 66.7-165.7Tyrosine 45.4 umol/L Reference Range: 27.8-83.3Phenylalanine 44.3 umol/L Reference Range: 35.8-76.9Argininosuccinate <0.1 umol/L Reference Range: 0.0-3.0Beta-alanine 1.8 umol/L Reference Range: 1.1-9.0Beta-aminoisobutyrate 2.4 umol/L Reference Range: 0.0-4.3Homocystine <0.3 umol/L Reference Range: 0.0-0.2Gamma-aminobutyrate <0.5 umol/L Reference Range: 0.0-0.6Tryptophan 31.1 umol/L Reference Range: 23.5-93.0Hydroxylysine 0.2 umol/L Reference Range: 0.1-0.8Ornithine 65.0 umol/L Reference Range: 30.1-101.3Lysine 133.6 umol/L Reference Range: 94.0-278.0Histidine 44.8 [L ] umol/L Reference Range: 47.2-98.5Arginine 102.7 umol/L Reference Range: 36.3-119.2Interpretation Comment Reference Range: .Plasma amino acid analysis reveals variations from thenormal reference range for several amino acids. Thepattern is not suggestive of a specific aminoacidopathy.This pattern may be due to differences in normalmetabolism, patient diet, or treatment.Director Review Comment Reference Range: .Technical Component analysis performed at [facility] Component interpretation performed by:Liliya Carroll, PhD, FACMGDirector, [facility]ochemical GeneticsM[facility] [id number] [facility] [id number] discuss these results or other testing for inborn errorsof metabolism, please contact our Biochemical Geneticistsat [phone] [facility] [id number]), [facility] [employer],[place], [place].Methodology Comment Reference Range: .Amino acid concentrations were obtained by LC-MS/MSanalysis.Performed at: [address] [id number] Director: Jihan Giles MD, Phone: [phone] at: [facility] [id number] [place], [place] [id number] Director: Gaby Miranda [facility], Phone: [phone] at: [address] [id number] Director: Daniel Sanabria PhD, Phone: [phone] Start: 06-02-[address] Ata Martinez DO Work Phone: Comment on above: Follicular phase 0.1 - 0.9 Luteal phase 1.8 - 23.9 Ovulation phase 0.1 - 12.0 First trimester 11.0 - 44.3 Second trimester 25.4 - 83.3 Third trimester 58.7 - 214.0 Postmenopausal 0.0 - 0.1Performed at: [address] [id number] Director: Daniel Sanabria PhD, Phone: [phone] Start: 06-02-2025 Total iron binding capacity measurement Dr. Ata Martinez DO Work Phone: Plan of Treatment Date Care Activity Detail Author Start: 06-14-2025 Following clinical p athway protocol [facility] Start: 06-14-2025 Ambulation without limitation [facility] Start: 06-14-2025 Assessment of risk o f venous thromboembolism [facility] Start: 06-14-2025 Documentation procedure [facility] Start: 06-14-2025 Insertion of cathete r into peripheral vein [facility] Start: 06-14-2025 Measuring intake and output [facility] Start: 06-14-2025 Oxygen therapy [facility] Start: 06-14-2025 Providing care accor ding to standard [facility] Start: 06-14-2025 Referral for physical therapy [facility] Start: 06-14-2025 Referral to gastroen terology service [facility] Start: 06-14-2025 Referral to occupational therapist [facility] Start: 06-14-2025 Referral to service [facility] Start: 06-14-2025 [facility] Start: 06-14-2025 Prothrombin time [facility] Start: 06-14-2025 Hospital admission, emergency, from emergency room, medical nature [facility] Start: 06-14-2025 Verification routine [facility] Start: 06-14-2025 Admission procedure [facility] Start: 06-14-2025 Administration of blood product [facility] Start: 06-14-2025 Leukocyte reduced red blood cells [facility] Start: 06-14-2025 End: 06-14-2025 [facility] Start: 09-10-2025 Patient discharge [facility] INR in Blood by Coagulation assay [facility] Magnesium measurement [facility] Immunizations Immunization Date Immunization Notes Care Provider Marquis krishna 05-22-2017 tetanus toxoid, redu josue diphtheria toxoid, and acellular pertussis vaccine, adsorbed Dr. Ata Martinez DO Work Phone: [facility] Payers Date Payer Category Payer Unknown [id number] 2025 Self-pay Unknown Unknown [id number] 2.16.8 [id number] Unknown [id number] 2.16.8 [id number] Unknown [id number] 2.16.8 [id number] Unknown [id number] 2.16.8 [id number] Unknown [id number] 2.16.8 [id number] Unknown [id number] 2.16.8 [id number] Unknown [id number] 2.16.8 [id number] Social History Date Type Detail Facility Start: 06-14-2025 End: 07-10-2025 Tobacco smoking status NHIS Never smoked tobacco (finding) [facility] Start: 1960 Sex Assigned At Female [facility] Sex Female [facility] Goals Date Patient Goal Desired Activity /State Functional Status Date Assessment Result Facility 06-14-2025 Functional status Patient Activity Ambula hailey [facility] Work Phone: 06-14-2025 Functional status Activity Abili ty Independent;Standby Assist [facility] Work Phone: Mental Status Date Assessment Result Facility 06-14-2025 Cognitive function Voice/Name [facility] Work Phone: 06-14-2025 Cognitive function Level Of Cons ciousness Awake;Alert;Appropriate;Follow s Commands [facility] Work Phone: Clinical Note 08-01-2025 Note Date & Type Note Facility 08-01-2025 Note [facility] Medical Records Department [address] [place] [address] History Physical Exam 08/01/25 0855 MR#: [id number] Acct: [id number] Name: MUNA IRBY Rep #: [id number] : 1960 64 From: Jayro Wilson MD PCP: Rufina Bowman, [employer] P[employer]ER-C Status:REG [facility] Location: [place] [address] History and Physical Date of Admission: 08/01/25 Intake Vital Signs 06/14/2511:49 07/10/2508:34 Height 5 ft 4 in 5 ft 4 in Weight: 187 lb 6 oz BMI 32.1 BP 145/97 H Blood Pressure Location Lt radial Position Sitting Respiration 17 Pulse 66 Pulse Source Monitor Temp 97.2 F L Temp Source Temporal Pulse Oximetry (%) 98 Oxygen Delivery Method room air Intake Visit Reasons: Anemia Chief Complaint: anemia Is patient in pain?: No Allergies No Known Allergies Allergy (Verified 07/10/25 08:36) Medications ???Medication ???Instructions ???Recorded ???Confirmed ???Type ferrous sulfate 325 mg (65 mg 325 mg PO QDAY 07/10/25 07/10/25 History iron) tablet Have you fallen in the past year?: No PFSH Medical History (Updated 07/10/25 @ 08:34 by Lien Reich LPN) Iron deficiency anemia Anemia requiring transfusions Social History (Updated 07/10/25 @ 08:34 by Lien Reich LPN) Smoking Status: Never smoker alcohol intake: never substance use type: does not use HPI HPI HPI: Patient is a 64-year-old female here with anemia. Patient does not note any gross blood per stool. She denies abdominal pain. She saw her doctor in early June and was found to have a hemoglobin of 6 and had 2 units of blood. She feels much better now. She has never had a colonoscopy or EGD. ROS General General: Yes fatigue; No weight change, appetite, colon cancer, breast cancer or weakness HEENT HEENT: No difficulty swallowing, eye injury, eye surgery, swollen glands or hoarseness Endo Endocrine: No thyroid disease, diabetes mellitus, thyroid cancer, Hair loss, heat intolerance or cold intolerance Skin Skin: No rash or changing moles Musc Musculoskeletal: No back problems, arthritis, rheumatoid arthritis, gout or joint pain Cardio Cardiovascular: No murmur, pacemaker, heart disease, atrial fibrillation, high blood pressure, heart attack, heart stent, palpitations, shortness of breath with exertion or chest pain Psych Psychiatric: No depression, anxiety or hearing voices Resp Respiratory: Yes shortness of breath, No sleep apnea, No cough, No COPD, No asthma, No emphysema and No wheezing Gastro Gastrointestinal: No abdominal pain, No nausea or vomiting, No diarrhea, No constipation, No blood in stool, No acid reflux, No hemorrhoids, No ulcers, No gallbladder problem and No black,tarry stools Ti Hematologic: No blood thinners, No blood disorders, No bleeding, No anemia and No blood clots Neuro Neurologic: No numbness, No tingling and No weakness Exam Const General: cooperative Orientation: alert and oriented x3 HENMT Head: normal to inspection Neck Neck: normal visual inspection and full ROM Chest Chest palpation inspection: normal inspection of the chest Resp Effort Inspection: normal respiratory effort Auscultation: clear to auscultation bilaterally Cardio Rate: regular rate Rhythm: regular rhythm GI Inspection: non-distended Palpation: soft and nontender Skin General: no rashes or lesions noted Neuro General: patient alert and patient oriented x3 Extrem General: full ROM Psych Appearance: grossly normal Mental Status: mental status grossly normal Assessment and Plan Assessment and Plan (1) Anemia: Qualifiers: Anemia type: iron deficiency Iron deficiency anemia type: unspecified iron deficiency Qualified Code(s): D50.9 - Iron deficiency anemia, unspecified Plan: Patient has iron deficiency anemia. I recommended upper and lower scope to evaluate the GI tract. I explained endoscopy in detail to the patient. I explained the risks including but not limited to stroke or heart attack with anesthesia, perforation of the GI tract, bleeding, infection. I explained that any of these could necessitate further emergency surgery. The patient understands and all questions were answered sufficiently. The patient wishes to proceed with procedure. Jayro Wilson MD Pager: [facility] [address] [place] [address] [address] [place] [address] Office: I have examined the patient and the H P has been reviewed. There are no clinical changes since date of exam. 08/01/25 0856 Cosigner Signature (if applicable): CC: GREG Bowman; Dr. Jayro Wilson MD Signed [facility] Progress note 07-10-2025 Note Date & Type Note Facility 07-10-2025 Progress note [facility] Discharge summary note 06-14-2025 Note Date & Type Note Facility 06-14-2025 Note [facility] Medical Records Department [address] [place] [address] Discharge Summary 06/14/25 1842 MR#: [id number] Acct: [id number] Name: MUNA IRBY Rep #: [id number] : 1960 64 From: Dante Hannah MD PCP: GREG Ponce Status:DIS IN Location: U [id number] Providers Date of Admission: 06/14/25 Date of Discharge: 06/14/25 Primary Care Physician: GREG Ponce Consultations 06/14/25 11:31 Consult: Gastroenterology Routine Consulting Provider: [facility] Reason for Consult: SEVERE TANVIR EMERGENT Consult: No MD Notified: Yes Date Notified: 06/14/25 Time Notified: 10:05 Method of Notification: Text Reason For Visit: ANEMA/BLOOD TRANSFUSION Diagnosis Discharge Diagnosis (1) Anemia requiring transfusions: Status: Acute Code(s): D64.9 - Anemia, unspecified Plan 64-year-old female being admitted for severe anemia from outside lab by PCP 1. Acute rapidly acute on chronic severe microcytic anemia: No previous lab to compare. Patient is being admitted in PCU. H H 6.6/24.8%. Platelet count normal. Units of PRBC-type and crossmatch and transfusion. Posttransfusion H H. Stool for occult blood ordered. GI consulted for severe microcytic anemia to rule out colon cancer. PPI ordered. Up to 3 minutes of PRBC transfusion, hemoglobin went up to 10.1. Patient was advised she will need colonoscopy. She did not agree with colonoscopy or suggestions. She signed AMA/left AGAINST MEDICAL ADVICE. 2. Severe anemia: Exact etiology unclear. Anemia workup including reticulocyte panel, iron profile, B12 and folic acid ordered. MCV low, MCH low RDW elevated therefore most likely iron deficiency anemia. 3. The patient denies any other chronic comorbidities including hypertension and diabetes mellitus or other comorbidities. Patient not on any home medication. DVT prophylaxis, moderate risk: Pharmacological prophylaxis contraindicated. Bilateral SCDs Living will/advanced directive/end of life care: Patient does not have living will or advanced directive. After discussion of benefits/risks procedures involved with full code, DNR CC arrest and DNR CC, the patient states he has not decided yet but opted for full code for now. Patient does want artificial life support including intubation, tube feed, ventilator and/chest compression, central venous catheter, vasopressor and DC shock if needed Total time spent in jqhn-di-mqaf encounter in discussion of advanced directive 17 minutes. She states her is power of edger automatic for health. Laboratory Results 06/14/25 08:20: WBC 5.0, RBC 3.48 L, Hgb 6.6 L, Hct 24.8 L, MCV 71.3 L, MCH 19.0 L, MCHC 26.6 L, RDW Std Deviation 49.1 H, RDW Coeff of Evelia 19.1 H, Plt Count 282, MPV 10.3, Immature Gran % (Auto) 0.200, Neut % (Auto) 54.9, Lymph % (Auto) 28.3, [place] % (Auto) 11.4 H, Eos % (Auto) 3.6, Baso % (Auto) 1.6 H, Absolute Neuts (auto) 2.7, Absolute Lymphs (auto) 1.41, Nucleated RBC % 0, Sodium 144, Potassium 4.1, Chloride 109 H, Carbon Dioxide 22.9, Anion Gap 12, BUN 14, Creatinine 0.79, Estim Creat Clear Calc 75.48, Est GFR (MDRD) Non-Af 83, BUN/Creatinine Ratio 17.4, Glucose 96, Calcium 9.2, Magnesium 2.1, Blood Type A POSITIVE, Antibody Screen NEGATIVE, Crossmatch See Detail 06/14/25 11:55: PT 12.7, INR 0.9 Medications at Discharge Home Medications NK 06/14/25 Hospital Course Summary of Care Provided Hospital Course: Laboratory Results 06/14/25 08:20: Crossmatch See Detail 06/14/25 18:18: Hgb 10.1 L, Hct 35.9 L Physical Exam Narrative Patient left AMA on the same day of admission. Please see physical exam on the H P. Weight / BMI Weight Weight: 188 lb 8 oz Body Mass Index (BMI) 32.1 ABG / Lab / Microbiology Data 06/14/25 18:18 06/14/25 08:20 Laboratory: Laboratory Results - last 24 hr 06/14/25 08:20: Crossmatch See Detail 06/14/25 18:18: Hgb 10.1 L, Hct 35.9 L D/C Instructions DC O2, CPAP, BIPAP Needs Home O2 Discharge instructions: No Meaningful Use Info Meaningful Use Meaningful Use Diagnoses (Choose all that apply): None applicable Discharge Plan Admission Admit Date/Time: 06/14/25 10:00 Attending Provider: Dante Hannah Primary Care Provider: Rufina Bowman NP Consulting Providers: Dante Hannah; Saturnino Back; Lynn Velasquez; Adriane Dial; Magaly Bundy Discharge Orders/Prescriptions Prescriptions: No Action NK Referrals / Follow Up: Ata Martinez DO [Non-Staff] - Rufina Bowman NP, [employer] P[employer]ER-C [Primary Care Provider] - Disposition Disposition (needs filled in before D/C Order can be placed): Home, Self Care Charges/Coding Visit Charges Inpatient E M: 31546 Disch Hosp 06/15/25 1646 Cosigner Signature (if applicable): CC: [employer] P[employer]-C Rufina Mancera (more content not included)... [facility] History and physical note 06-14-2025 Note Date & Type Note Facility 06-14-2025 History and physical note Note Date/Time June 14, 2025 3:11pm [facility] Medical Records Department [address] [place] [address] H&P Exam - Hospitalist 06/14/25 1005 MR#: [id number] Acct: [id number] Name: MUNA IRBY Rep #:[id number] : 1960 64 From: Dante Kent PCP: GREG Ponce Status:AD M IN Location: PCU [id number] HPI - General General Date of Admission: 06/14/25 Date of Service: 06/14/25 Chief Complaint: Very severe anemia from outpatient lab HPI Narrative MUNA IRBY, is a 64 F was sent by PCP for low hemoglobin, blood was drawn on 06/02 and was 6.6 g. In ED, H&H found 6.6 24.8%. Microcytic, platelet count 282K. She denies any associated symptom of chest pain pressure tightness, dizziness lightheadedness although she feels dyspnea on exertion when climbing 1 flight ofstairs. Denies GI bleed including hematemesis melena or hematochezia. Did not had colonoscopy or EGD in the past. Denies first-degree family history of colonpatient cancer. No nausea or vomiting. Patient not on any blood thinner or antiplatelet agent Or NSAID 2 L of PRBC type and crossmatch ordered by ER physician and further admitted [facility] Medical History no medical history Home Medications ?Medication ?Instructions ?Recorded ?Last Taken ?Type NK 06/14/25 Unknown History Allergy/AdvReac Type Severity Reaction Status Date / Time No Known Allergies Allergy Verified 05/22/17 10:09 Social History Smoking Status: Never smoker ROS ROS Narrative Constitutional: Denies chronic fatigue and weakness. No fever. HEENT: Reports systems reviewed and no addt'l complaints, except as documented Respiratory/Chest: Recent dyspnea on exertion when climbing stairs. No acute shortness of breath or respiratory distress or wheezing. No smoking. No chronic lung disease CVS: No chest pain. Denies any chronic cardiac disease Gastrointestinal: Denies coffee ground emesis, hematemesis or vomiting Genitourinary: Denies burning urination or new urinary tract symptoms Musculoskeletal: Denies acute joint pain or limited range of motion. No acute injury Neurologic: Denies seizure-like symptoms. skin: No ulcer. No rash Endocrinology: Reports systems reviewed and no addt'l complaints, except as documented Hematologic/Lymphatic: Reports systems reviewed and no addt'l complaints, exceptas documented Rest 14 ROS are negative except as mentioned in HPI Vital Signs Vital Signs Vital Signs: 06/14/25 08:08 06/14/25 08:36 Temperature 97.2 F L Temperature Source Temporal Pulse Rate 77 Respiratory Rate 16 Respiratory Effort Normal Non-Labored Respiratory Pattern Normal Blood Pressure 154/81 H Blood Pressure Mean 105 Pulse Ox 100 Oxygen Delivery Method Room Air Weight Weight: 187 lb 6.4 oz Body Mass Index (BMI) 31.1 Physical Exam Narrative General: Alert, Oriented x3, Cooperative, . Pale looking HEENT: Atraumatic, PERRLA, EOMI, Normocephalic. Oral: No Gingival or Mucosal Lesions/ Ulcerations Neck: Supple, No JVD, Negative Carotid Bruits Chest wall/Lungs: Air entry diminished in bilateral lung bases. No crepitation/rhonchi Cardiovascular: Regular rate and rhythm, Normal S1,S2, No M/G/R Abdomen: Bowel Sounds Present, Soft, Non Tender, Non-Distended : No dysuria. No renal angle tenderness. No suprapubic tenderness. Extremities: No edema, Capillary Refill Less than 3 Seconds Skin: No rashes, No breakdown Musculoskeletal: No Tenderness to Palpation of Joints or Extremities Neurological: Cranial nerves II-XII grossly intact, DTR 2+/4. No acute focal neurological deficit. Psych/Mental Status: Normal Affect, Appropriate. Results Lab / Micro Data 06/14/25 08:20 06/14/25 08:20 Labs: Laboratory Results - last 24 hr 06/14/25 08:20: WBC 5.0, RBC 3.48 L, Hgb 6.6 L, Hct 24.8 L, MCV 71.3 L, MCH 19.0L, MCHC 26.6 L, RDW Std Deviation 49.1 H, RDW Coeff of Evelia 19.1 H, Plt Count 282, MPV 10.3, Immature Gran % (Auto) 0.200, Neut % (Auto) 54.9, Lymph % (Auto) 28.3, [place] % (Auto) 11.4 H, Eos % (Auto) 3.6, Baso % (Auto) 1.6 H, Absolute Neuts (auto) 2.7, Absolute Lymphs (auto) 1.41, Nucleated RBC % 0, Sodium 144, Potassium 4.1, Chloride 109 H, Carbon Dioxide 22.9, Anion Gap 12, BUN 14, Creatinine 0.79, Estim Creat Clear Calc 75.48, Est GFR (MDRD) Non-Af 83, BUN/Creatinine Ratio 17.4, Glucose 96, Calcium 9.2, Blood Type A POSITIVE, Antibody Screen NEGATIVE, Crossmatch See Detail Assessment & Plan Assessment/Plan (1) Anemia requiring transfusions: PLAN: Plan 64-year-old female being admitted for severe anemia from outside lab by PCP 1. Acute rapidly acute on chronic severe microcytic anemia: No previous lab to compare. Patient is being admitted in PCU. H&H 6.6/24.8%. Platelet count normal. Units of PRBC-type and crossmatch and transfusion. Posttransfusion H&H. Stool for occult blood ordered. GI consulted for severe microcytic anemiato rule out colon cancer. PPI ordered. 2. Severe anemia: Exact etiology unclear. Anemia workup including reticulocytepanel, iron profile, B12 and folic acid ordered. MCV low, MCH low RDW elevated therefore most likely iron deficiency anemia. 3. The patient denies any other chronic comorbidities including hypertension and diabetes mellitus or other comorbidities. Patient not on any home medication. DVT prophylaxis, moderate risk: Pharmacological prophylaxis contraindicated. Bilateral SCDs Living will/advanced directive/end of life care: Patient does not have living will or advanced directive. After discussion of benefits/risks procedures involved with full code, DNR CC arrest and DNR CC, the patient states he has not decided yet but opted for full code for now. Patient does want artificial life support including intubation, tube feed, ventilator and/chest compression, central venous catheter, vasopressor and DC shock if needed Total time spent in [id number] encounter in discussion of advanced directive 17 minutes. She states her is power of edger automatic for health. Laboratory Results 06/14/25 08:20: WBC 5.0, RBC 3.48 L, Hgb 6.6 L, Hct 24.8 L, MCV 71.3 L, MCH 19.0L, MCHC 26.6 L, RDW Std Deviation 49.1 H, RDW Coeff of Evelia 19.1 H, Plt Count 282, MPV 10.3, Immature Gran % (Auto) 0.200, Neut % (Auto) 54.9, Lymph % (Auto) 28.3, [place] % (Auto) 11.4 H, Eos % (Auto) 3.6, Baso % (Auto) 1.6 H, Absolute Neuts (auto) 2.7, Absolute Lymphs (auto) 1.41, Nucleated RBC % 0, Sodium 144, Potassium 4.1, Chloride 109 H, Carbon Dioxide 22.9, Anion Gap 12, BUN 14, Creatinine 0.79, Estim Creat Clear Calc 75.48, Est GFR (MDRD) Non-Af 83, BUN/Creatinine Ratio 17.4, Glucose 96, Calcium 9.2, Magnesium 2.1, Blood Type A POSITIVE, Antibody Screen NEGATIVE, Crossmatch See Detail 06/14/25 11:55: PT 12.7, INR 0.9 Charges/Coding Visit Charges Inpatient E&M: 10905 Init Hosp L3 Procedures Hospitalists Procedures: 94466 Advncd Care Plan 30 Min 06/14/25 1333 <Electronically signed by Dante Hannah MD> Cosigner Signature (if applicable): CC: GREG Bowman; Dr. Dante Hannah MD~ Signed ADDENDUM by Dr. Dante Hannah MD on 06/14/25 at 1511 Addendum Labs from 06/02 reviewed. Iron profile suggestive of iron deficiency anemia, TIBC, UIBC high 465, serum iron 12, iron saturation 2%. Ferritin 5. TSH normal. Free T41.3. 06/14/25 1511<Electronically signed by Dante Hannah MD> Cosigner Signature (if applicable): cc: GREG Bowman; Dr. Dante Hannah MD ~* Signed [facility] Work Phone: History and physical note 06-14-2025 Note Date & Type Note Facility 06-14-2025 History and physi giuliana note [facility] Evaluation note 06-14-2025 Note Date & Type Note Facility 06-14-2025 Evaluation note Diagnosis Onset Date Resolution Anemia requiring transfusions acute June 14, 2025 10:00am [facility] Work Phone: Evaluation note 06-14-2025 Note Date & Type Note Facility 06-14-2025 Evaluation note Diagnosis Onset Date Resolution Anemia requiring transfusions inactive June 14, 2025 10:00am Anemia noneactive July 10, 025 8:20am [facility] Work Phone: Evaluation note Note Date & Type Note Facility Evaluation note No assessment information availa ble [facility] Work Phone: Progress note Note Date & Type Note Facility Progress note Note Date/Time July 10, 2025 8:40am [facility] [address] [place] [address] OFFICE VISIT Date of Service: 07/10/25 MR#: [id number] Acct: [id number] Name: MUNA IRBY Rep #: [id number] : [id number] Provider: Dr. Davi Wilson MD Age/Sex: 64/F Location: [facility] Status: Signed Intake Vital Signs 06/14/25 11:49 07/10/25 08:34 Height 5 ft 4 in 5 ft 4 in Weight: 187 lb 6 oz BMI 32.1 BP 145/97 H Blood Pressure Location Lt radial Position Sitting Respiration 17 Pulse 66 Pulse Source Monitor Temp 97.2 F L Temp Source Temporal Pulse Oximetry (%) 98 Oxygen Delivery Method room air Intake Visit Reasons: Anemia Chief Complaint: anemia Is patient in pain?: No Allergies No Known Allergies Allergy (Verified 07/10/25 08:36) Medications ?Medication ?Instructions ?Recorded ?Confirmed ?Type ferrous sulfate 325 mg (65 mg 325 mg PO QDAY 07/10/25 07/10/25 History iron) tablet Have you fallen in the past year?: No [facility] Medical History (Updated 07/10/25 @ 08:34 by Lien Reich LPN) Iron deficiency anemia Anemia requiring transfusions Social History (Updated 07/10/25 @ 08:34 by Lien Reich LPN) Smoking Status: Never smoker alcohol intake: never substance use type: does not use HPI HPI HPI: Patient is a 64-year-old female here with anemia. Patient does not note any gross blood per stool. She denies abdominal pain. She saw her doctor in early June and was found to have a hemoglobin of 6 and had 2 units of blood. Shefeels much better now. She has never had a colonoscopy or EGD. ROS General General: Yes fatigue; No weight change, appetite, colon cancer, breast cancer or weakness HEENT HEENT: No difficulty swallowing, eye injury, eye surgery, swollen glands or hoarseness Endo Endocrine: No thyroid disease, diabetes mellitus, thyroid cancer, Hair loss, heat intolerance or cold intolerance Skin Skin: No rash or changing moles Musc Musculoskeletal: No back problems, arthritis, rheumatoid arthritis, gout or joint pain Cardio Cardiovascular: No murmur, pacemaker, heart disease, atrial fibrillation, high blood pressure, heart attack, heart stent, palpitations, shortness of breath with exertion or chest pain Psych Psychiatric: No depression, anxiety or hearing voices Resp Respiratory: Yes shortness of breath, No sleep apnea, No cough, No COPD, No asthma, No emphysema and No wheezing Gastro Gastrointestinal: No abdominal pain, No nausea or vomiting, No diarrhea, No constipation, No blood in stool, No acid reflux, No hemorrhoids, No ulcers, No gallbladder problem and No black,tarry stools Ti Hematologic: No blood thinners, No blood disorders, No bleeding, No anemia and No blood clots Neuro Neurologic: No numbness, No tingling and No weakness Exam Const General: cooperative Orientation: alert and oriented x3 HENMT Head: normal to inspection Neck Neck: normal visual inspection and full ROM Chest Chest palpation & inspection: normal inspection of the chest Resp Effort & Inspection: normal respiratory effort Auscultation: clear to auscultation bilaterally Cardio Rate: regular rate Rhythm: regular rhythm GI Inspection: non-distended Palpation: soft and nontender Skin General: no rashes or lesions noted Neuro General: patient alert and patient oriented x3 Extrem General: full ROM Psych Appearance: grossly normal Mental Status: mental status grossly normal Assessment and Plan Assessment and Plan (1) Anemia: Qualifiers: Anemia type: iron deficiency Iron deficiency anemia type: unspecified iron deficiency Qualified Code(s): D50.9 - Iron deficiency anemia, unspecified Plan: Patient has iron deficiency anemia. I recommended upper and lower scope to evaluate the GI tract. I explained endoscopy in detail to the patient. I explained the risks includingbut not limited to stroke or heart attack with anesthesia, perforation of the GItract, bleeding, infection. I explained that any of these could necessitate further emergency surgery. The patient understands and all questions were answered sufficiently. The patient wishes to proceed with procedure. Jayro Wilson MD Pager: [facility] [address] [place] [address], [address] [place] [address] Office: Coding Level of Care Code Off vis,new,level 3 Diagnoses Iron deficiency anemia, unspecified iron deficiency anemia type D50.9 Anemia type: iron deficiency Iron deficiency anemia type: unspecified iron deficiency Clinical Quality Measures Falls Risk Screening/Assistive Devices Have you fallen in the past year?: No 07/10/25 0840 <Electronically signed by Jayro maxwell MD> Date _ Jayro Wilson MD Cosigner Signature: Date (if applicable) CC: GREG Bowman ~ [facility] Work Phone: Reason for referral (narrative) Note Date & Type Note Facility Reason for referral (narrative) No reason for referral information available [facility] Work Phone: Summary Purpose Family History No Family History Records FoundNo Family History Records Found Advance Directives No Advanced Directives Records Found Advance Directive Response Recorded Date/ Time Do you have a Healthcare Power of Manager Respiratory? No June 14, 2025 8:36am Advance Directive Response Recorded Date/ Time Do you have a Healthcare Power of Manager Respiratory? No June 14, 2025 11:52am Chief Complaint and Reason for Visit Chief Complaint Admit Date R53.82,R06.00,R00.2,E28.9 June 02, 2 025 12:40pm ANEMA/BLOOD TRANSFUSION June 14, 2025 10:00am Chief Complaint Admit Date R53.82,R06.00,R00.2,E28.9 June 02, 2 025 12:40pm ANEMA/BLOOD TRANSFUSION June 14, 2025 10:00am ANEMA/BLOOD TRANSFUSION June 14, 2025 10:05am Reason for Visit Admit Date Anemia requiring transfusions June 14, 2025 10:00am Chief Complaint Admit Date R53.82,R06.00,R00.2,E28.9 June 02, 2 025 12:40pm ANEMA/BLOOD TRANSFUSION June 14, 2025 10:00am ANEMA/BLOOD TRANSFUSION June 14, 2025 10:05am Anemia July 10, 2025 8: 20am Reason for Visit Admit Date Anemia requiring transfusions June 14, 2025 10:00am Anemia July 10, 2025 8: 20am Additional Source Comments INFORMATION SOURCE (unrecogn ized section and content) DATE CREATED AUTHOR 03/31/2018 [facility] DATE CREATED AUTHOR AUTHOR'S ORGANIZ ATION 08/11/2025 [facility] Care Teams (unrecognized sec tion and content) Team Status: Active Member Role/Relationship Status Dates Rufina Bowman PLASTIC BOAT PATCHER, PLASTIC BOAT PATCHER-C Primary Care Provider Activ e Team Status: Active Member Role/Relationship Status Dates Dr. Ata Martinez DO Primary Care Provider Active Start: June 02, 2025 Yessi Boston PLASTIC BOAT PATCHER, PLASTIC BOAT PATCHER-C Attending Provider Active Start: June 02, 2025 Yessi Boston PLASTIC BOAT PATCHER, PLASTIC BOAT PATCHER-C Referring Provider Active Start: June 02, 2025 Team Status: Active Member Role/Relationship Status Dates Dr. Lenny Herrera MD Emergency Provider Active S tart: June 14, 2025 Rufina Bowamn NP, PLASTIC BOAT PATCHER-C Primary Care Provider Activ e Start: June 14, 2025 Dr. Dante Hannah MD Admit Provider Active Sta rt: June 14, 2025 Dr. Dante Hannah MD Attending Provider Active Start: June 14, 2025 Team Status: Inactive Member Role/Relationship Status Dates Dr. Lenny Herrera MD Emergency Provider Active S tart: June 14, 2025 End: June 14, 2025 Rufina Bowman NP, PLASTIC BOAT PATCHER-C Primary Care Provider Activ e Start: June 14, 2025 End: June 14, 2025 Dr. Dante Hannah MD Admit Provider Active Sta rt: June 14, 2025 End: June 14, 2025 Dr. Dante Hannah MD Attending Provider Active Start: June 14, 2025 End: June 14, 2025 Dr. Dante Hannah MD Other Provider Active Sta rt: June 14, 2025 End: June 14, 2025 Dr. Saturnino Back DO Other Provider Active St art: June 14, 2025 End: June 14, 2025 Lynn Velasquez NP-C Other Provider Active Start : June 14, 2025 End: June 14, 2025 CHRIS RedmanC Other Provider Active St art: June 14, 2025 End: June 14, 2025 TAWANDA Garibay Other Provider Active Star t: June 14, 2025 End: June 14, 2025 Team Status: Active Member Role/Relationship Status Dates Dr. Lenny Herrera MD Emergency Provider Active S tart: June 14, 2025 Rufina Bowman PLASTIC BOAT PATCHER, PLASTIC BOAT PATCHER-C Primary Care Provider Activ e Start: June 14, 2025 Dr. Dante Hannah MD Admit Provider Active Sta rt: June 14, 2025 Dr. Dante Hannah MD Attending Provider Active Start: June 14, 2025 Dr. Dante Hannah MD Other Provider Active Sta rt: June 14, 2025 Dr. Saturnino Back DO Other Provider Active St art: June 14, 2025 GREG Hicks Other Provider Active Start : June 14, 2025 CHRIS RedmanC Other Provider Active St art: June 14, 2025 TAWANDA Garibay Other Provider Active Star t: June 14, 2025 Team Status: Active Member Role/Relationship Status Dates Rufina Bowman PLASTIC BOAT PATCHER, PLASTIC BOAT PATCHER-C Primary care physician Acti ve Team Status: Active Member Role/Relationship Status Dates Dr. Ata Martinez DO Primary care physician Active Start: June 02, 2025 Yessi Boston PLASTIC BOAT PATCHER, PLASTIC BOAT PATCHER-C Attending physician Active Start: June 02, 2025 Yessi Boston NP, PLASTIC BOAT PATCHER-C Referring Provider Active Start: June 02, 2025 Team Status: Inactive Member Role/Relationship Status Dates Dr. Lenny Herrera MD Emergency Departmen t Physician Active Start: June 14, 2025 End: June 14, 2025 Rufina Bowman PLASTIC BOAT PATCHER, PLASTIC BOAT PATCHER-C Primary care physician Active Start: June 14, 2025 End: June 14, 2025 Dr. Dante Hannah MD Admitting physician Active Start: June 14, 2025 End: June 14, 2025 Dr. Dante Hannah MD Attending physician Active Start: June 14, 2025 End: June 14, 2025 Dr. Dante aHnnah MD Nurse Practitioner Active Start: June 14, 2025 End: June 14, 2025 Dr. Saturnino Back DO Nurse Practitioner Active Start: June 14, 2025 End: June 14, 2025 GREG Hicks Nurse Practitioner Active S tart: June 14, 2025 End: June 14, 2025 GREG Redman Nurse Practitioner Active Start: June 14, 2025 End: June 14, 2025 TAWANDA Garibay Nurse Practitioner Active Start: June 14, 2025 End: June 14, 2025 Team Status: Active Member Role/Relationship Status Dates Dr. Lenny Herrera MD Emergency Departmen t Physician Active Start: June 14, 2025 Rufina Bowman NP, NP-C Primary care physician Active Start: June 14, 2025 Dr. Dante Hannah MD Admitting physician Active Start: June 14, 2025 Dr. Dante Hannah MD Attending physician Active Start: June 14, 2025 Dr. Dante Hannah MD Nurse Practitioner Active Start: June 14, 2025 Dr. Saturnino Back DO Nurse Practitioner Active Start: June 14, 2025 GREG Hicks Nurse Practitioner Active S tart: June 14, 2025 GREG Redman Nurse Practitioner Active Start: June 14, 2025 TAWANDA Garibay Nurse Practitioner Active Start: June 14, 2025 Team Status: Inactive Member Role/Relationship Status Dates Rufina Bowman NP, NP-C Primary care physician Acti ve Start: July 10, 2025 End: July 10, 2025 Rufina Bowman NP, NP-Miguel Referring Provider Active Start: July 10, 2025 End: July 10, 2025 Dr. Jayro Wilson MD Attending physician Active Start: July 10, 2025 End: July 10, 2025 Goals (unrecognized section and content) Goals may be documented in a n alternate section FOR RECORDS PERTAINING TO PATIENTS WHO ARE OR HAVE BEEN ENROLLED IN A CHEMICAL DEPENDENCY/SUBSTANCEABUSE PROGRAM, SOME INFORMATION MAY BE OMITTED. This clinical summary was aggregated from multiple sources. Caution should be exercised in using it in the provision of clinical care. This summary normalizes information from multiple sources, and as a consequence, information in this document may materially change the coding, format and clinical context of patient data. In addition, data may be omitted in some cases. CLINICAL DECISIONS SHOULD BE BASED ON THE PRIMARY CLINICAL RECORDS. [facility] [employer] provides no warranty or guarantee of the accuracy or completeness of information in this document.
== END | disposition home or self-care (01) ==
LOC: PSN 08:30
PROVIDERS: PCP Nurse Practitioner Family
DX: R94.31 Abnormal electrocardiogram [ECG] [EKG] (principal)
CPT/HCPCS: 93225; 93226

== ENCOUNTER → 2025-10-02 | Outpatient (CLI) | payer OTHER, SELFPAY ==
[2025-10-02 12:36] LABS: Hematocrit 38.2 % (37-47); Hemoglobin 12.0 g/dL (12.0-15.0); Immature Granulocytes Count 0.020 X10^3/uL (0.0-0.0); Mean Corp Hgb Conc 31.4 g/dL (32-36); Mean Corpuscular Volume 84.0 fL (81-99); Mean Platelet Vol. 11.1 fl (6.2-12.0); NRBC Flagged by Analyzer 0 % (0-5); POSITIVE MORPHOLOGY YES; Platelet Count 220 K/mm3 (150-450); RBC Distribution Width CV 21.5 % (11.6-14.6); RBC Distribution Width SD 64.9 fl (35.1-43.9); Red Blood Count 4.55 M/mm3 (4.2-5.4); White Blood Count 6.4 K/mm3 (4.4-11.0)
[2025-10-02 12:45] LABS: Differential Indicated SCAN CRITERIA MET
[2025-10-02 13:05] LABS: Anisocytosis 1+
[2025-10-02 13:10] LABS: AST(SGOT) 18 U/L (<=31); Alanine Aminotransfer ALT/SGPT 16 U/L (<=34); Albumin, Serum 4.0 g/dL (3.4-4.8); Alkaline Phosphatase 83 U/L (35-104); Anion Gap 11 (7-18); BUN 16 mg/dL (4-19); BUN/Creat Ratio 20.6 RATIO (10-20); Calcium,Total 9.6 mg/dL (7.6-11.0); Carbon Dioxide 24.1 mmol/L (20.0-29.0); Chloride 106 mmol/L (96-106); Ferritin 35 ng/mL (22-378); Globulin 2.7 g/dL (2.2-4.2); Glucose 87 mg/dL (70-99); Iron 50 ug/dL (50-170); Iron Binding Capacity,Total 388 ug/dL (250-450); Iron Binding Capacity,Unsat 338 ug/dL (228-428); Potassium 4.1 mmol/L (3.5-5.1)
== END | disposition home or self-care (01) ==
LOC: LABSPEC 12:21
PROVIDERS: PCP Nurse Practitioner Family; Referring Provider Nurse Practitioner Family; Visit Provider Nurse Practitioner Family
DX: R53.82 Chronic fatigue, unspecified (principal); R06.00 Dyspnea, unspecified; R00.2 Palpitations; D50.9 Iron deficiency anemia, unspecified
CPT/HCPCS: 80053; 82728; 83540; 83550; 85025